=== PATIENT | female | born 1945 | race Caucasian/White ===

== ENCOUNTER 2018-08-29 08:52 | Emergency (ER) | payer MEDICARE, OTHER ==
[~2018-08-29] VITALS: Ht 160 cm; Wt 81.7 kg
[~2018-08-29 08:52] MED LIST: ASPI325 PO; ASPI81CH PO; DOCU100 PO; IBUP400 PO; KRILL OIL 3001 EACH PO; LEVOXYL; LOSA50 PO; LOSHYD; LOSHYD100 PO; METO50ER; NIAC500 PO; NICO2 PO; NICO21TP TOP; SERT50; UBID10 PO; VITAMIN B122500 MCG PO
[2018-08-29] MEDS ORDERED: Percocet 5-3251 EACH PO (11:13)
== END 2018-08-29 11:41 | disposition home or self-care (01) ==
LOC: ER 08:52
DX: S82.841A Displaced bimalleolar fracture of right lower leg, initial encounter for closed fracture (principal); S92.321A Displaced fracture of second metatarsal bone, right foot, initial encounter for closed fracture; S92.331A Displaced fracture of third metatarsal bone, right foot, initial encounter for closed fracture; S92.341A Displaced fracture of fourth metatarsal bone, right foot, initial encounter for closed fracture; W19.XXXA Unspecified fall, initial encounter; R93.6 Abnormal findings on diagnostic imaging of limbs; Z88.0 Allergy status to penicillin; Z88.2 Allergy status to sulfonamides; Z79.899 Other long term (current) drug therapy; Z79.82 Long term (current) use of aspirin; I10 Essential (primary) hypertension; F17.200 Nicotine dependence, unspecified, uncomplicated
CPT/HCPCS: 27810; 36415; 73600; 73700; 76377; 96374-59; 99152; 99284-25; J2405; J2704; J7030

== ENCOUNTER 2018-09-07 06:28 | Day surgery (SDC) | payer MEDICARE, OTHER ==
[~2018-09-07] VITALS: Ht 160 cm; Wt 82.8 kg
[~2018-09-07 06:28] MED LIST changes: +Percocet 5-3251 EACH PO
[2018-09-07] MEDS ORDERED: BACL10 PO (07:11)
[2018-09-07] MEDS ORDERED: TRAM50 PO (07:11)
[2018-09-07] MEDS ORDERED: AMLO10 PO (07:12)
--- NOTE | 2018-09-07 08:10 | NUR ---
09/07/18 0810 Sharon Robert A DIME SIZE CLOSED BLISTER NOTED TO RIGHT ANTERIOR ANKLE. EVELYN AND PA AWARE.
== END 2018-09-07 10:46 | disposition home or self-care (01) ==
LOC: ORSCSDS 06:28
PROVIDERS: Orthopaedic Surgery
PROC: 0QSJ04Z Reposition Right Fibula with Internal Fixation Device, Open Approach (ICD-10-PCS; principal; 2018-09-07 07:30)
PROC: 0QSG04Z Reposition Right Tibia with Internal Fixation Device, Open Approach (ICD-10-PCS; principal; 2018-09-07 07:30)
DX: S82.851A Displaced trimalleolar fracture of right lower leg, initial encounter for closed fracture (principal); I10 Essential (primary) hypertension; J44.9 Chronic obstructive pulmonary disease, unspecified; Z87.891 Personal history of nicotine dependence; Z79.899 Other long term (current) drug therapy
CPT/HCPCS: 36415; 80048; C1713; C1769; J1100; J1885; J2405; J2704; J2795; J3010; J7120

== ENCOUNTER 2019-05-05 20:10 | Inpatient (IN) | payer MEDICARE, OTHER ==
[~2019-05-05] VITALS: Ht 160 cm; Wt 79.4 kg
[~2019-05-05 20:10] MED LIST changes: +AMLO10 PO; +BACL10 PO; +TRAM50 PO
[2019-05-05 21:13] LABS: BASOPHILS ABSOLUTE AUTO 0.02 K/mm3 (0.00-0.23); BASOPHILS PERCENT AUTO 0 % (0-2); EOSINOPHILS ABSOLUTE AUTO 0.04 K/mm3 (0.00-0.68); EOSINOPHILS PERCENT AUTO 1 % (0-6); Hematocrit 39.3 % (33.0-51.0); Hemoglobin 14.4 g/dL (11.5-16.0); IMMATURE GRAN ABSOLUTE AUTO 0.04 K/mm3 (0.00-0.10); IMMATURE GRAN PERCENT AUTO 1 % (0-1); LYMPHOCYTES ABSOLUTE AUTO 1.22 K/mm3 (0.84-5.20); LYMPHOCYTES PERCENT AUTO 14 % (21-46); MONOCYTES ABSOLUTE AUTO 1.26 K/mm3 (0.16-1.47); MONOCYTES PERCENT AUTO 14 % (4-13); Mean Corpuscular HGB 31.6 pg (26.0-34.0); Mean Corpuscular HGB Conc 36.6 g/dL (31.5-36.5); Mean Corpuscular Volume 86 fL (80-100); Mean Platelet Volume 8.7 fL (9.1-12.4); NEUTROPHILS ABSOLUTE AUTO 6.16 K/mm3 (1.96-9.15); NEUTROPHILS PERCENT AUTO 70 % (41-73); Platelet Count 319 K/mm3 (150-400); RDW Coefficient Variation 12.5 % (11.7-14.2); RDW Standard Deviation 39.7 fL (35.1-46.3); Red Blood Cell Count 4.56 M/mm3 (3.80-5.20); White Blood Cell Count 8.74 K/mm3 (4.00-11.30)
[2019-05-05 21:41] LABS: Troponin I <0.015 ng/mL (0.000-0.040)
[2019-05-05 21:51] LABS: Alanine Aminotransfer (ALT/SGP 30 U/L (12-78); Albumin, Blood 4.1 g/dL (3.4-5.0); Albumin/Globulin Ratio 1.1 (0.8-1.8); Alk Phos 122 U/L (50-136); Anion Gap 10 mmol/L (6-16); Aspartate Aminotrans (AST/SGOT 30 U/L (12-37); Bilirubin, Total 0.5 mg/dL (0.1-1.0); Blood Urea Nitrogen 8 mg/dL (8-24); Bun/Creatinine Ratio 11.4 (12.0-20.0); CO2, Blood 26 mmol/L (21-32); Calcium, Blood 9.2 mg/dL (8.5-10.1); Chloride, Blood 80 mmol/L (98-108); Globulin, Blood 3.8 g/dL (2.2-4.0); Glomerular Filtration Rate >60 (60-); Glucose, Blood 117 mg/dL (70-99); Potassium, Blood 3.9 mmol/L (3.5-5.5); Sodium, Blood 116 mmol/L (136-145); Total Protein, Blood 7.9 g/dL (6.4-8.2)
[2019-05-05 22:33] LABS: Free Thyroxine 1.22 ng/dL (0.70-1.60); Magnesium, Blood 1.9 mg/dL (1.6-2.4); Uric Acid, Blood 3.5 mg/dL (2.6-6.0)
[2019-05-05 22:35] LABS: Phosphorus, Blood 1.8 mg/dL (2.5-4.9); Thyroid Stimulating Hormone 3.44 uIU/mL (0.360-4.800); Triiodothyronine, Free 2.99 pg/mL (2.18-3.98)
[2019-05-06 05:49] LABS: Anion Gap 8 mmol/L (6-16); Blood Urea Nitrogen 9 mg/dL (8-24); CO2, Blood 26 mmol/L (21-32); Calcium, Blood 8.4 mg/dL (8.5-10.1); Chloride, Blood 87 mmol/L (98-108); Creatinine, Blood 0.75 mg/dL (0.40-1.00); Glomerular Filtration Rate >60 (60-); Glucose, Blood 105 mg/dL (70-99); Potassium, Blood 3.8 mmol/L (3.5-5.5); Sodium, Blood 121 mmol/L (136-145); Troponin I <0.015 ng/mL (0.000-0.040)
--- NOTE | 2019-05-06 06:55 | NUR ---
Patient arrived from the ER awake, cooperative, able to move self from gurney to bed. Patient is dizzy when she stands, which has been normal for her for the past few days. When she arrived @ 0005, she wanted a sleep aid and nicotine patch, both were given/placed. no acute changes over the shift.
--- NOTE | 2019-05-06 10:40 | NUR ---
TELE BOX RETURNED TO PCU.
--- NOTE | 2019-05-06 16:07 | NUR ---
SHIFT SUMMARY NO ACUTE CHANGES THIS SHIFT. PT DENIES SOB. SATS STABLE ON ROOM. PT INDEP IN ROOM. IVF INFUSING PER ORDERS. LABS ORDERED FOR THE A.M. CALL LIGHT WITHIN REACH.
--- NOTE | 2019-05-07 05:09 | NUR ---
PATIENT INDEPENDENT IN THE ROOM. STATED THAT SHE WAS ABLE TO SLEEP LAST NIGHT. PATIENT HAD LABS DRAWN THIS AM, PT HOPES THAT SHE WILL BE GOING HOME TODAY. dURING AM VIATLS IT WAS SHE WAS FOUND TO HAVE BIOX OF 88%. PT COACHED TO DEEP BREATH AND COUGH SEVERAL TIMES. BIOX QUICKLY INCREASED TO 91%. HER LUNGS ARE CLEAR. PT IS A SMOKER WITH A NICOTINE PATCH ON. NO OTHER ACUTE CHANGES.
[2019-05-07 05:44] LABS: Anion Gap 6 mmol/L (6-16); Blood Urea Nitrogen 12 mg/dL (8-24); Bun/Creatinine Ratio 13.6 (12.0-20.0); CO2, Blood 28 mmol/L (21-32); Calcium, Blood 8.9 mg/dL (8.5-10.1); Chloride, Blood 98 mmol/L (98-108); Creatinine, Blood 0.88 mg/dL (0.40-1.00); Glomerular Filtration Rate >60 (60-); Glucose, Blood 101 mg/dL (70-99); Potassium, Blood 4.1 mmol/L (3.5-5.5)
[2019-05-07 05:49] LABS: Sodium, Blood 132 mmol/L (136-145)
--- NOTE | 2019-05-07 12:08 | NUR ---
Discharge instructions reviewed with patient. Patient verbalizes understanding. Copy given to patient to take home. Discharged via wheelchair to private car for ride home.
== END 2019-05-07 12:00 | disposition home or self-care (01) | DRG 641 ==
LOC: ER 20:10 → SURS 23:02 → ER 23:35 → SURS 23:46
PROVIDERS: Emergency Medicine; Hospitalist; Physician Assistant; ADMIT Internal Medicine
DX: E87.1 Hypo-osmolality and hyponatremia (principal); R91.1 Solitary pulmonary nodule; J44.9 Chronic obstructive pulmonary disease, unspecified; I10 Essential (primary) hypertension; K21.9 Gastro-esophageal reflux disease without esophagitis; M32.9 Systemic lupus erythematosus, unspecified; M54.9 Dorsalgia, unspecified
CPT/HCPCS: 36415; 71045; 71260; 80048; 80053; 83735; 83880; 83930; 84100; 84439; 84443; 84481; 84484; 84550; 85025; 85379; 93005; 93010; 96360; 99285-25; J1650; J2405; J7030; Q9967

== ENCOUNTER 2020-02-02 19:16 | Inpatient (IN) | payer MEDICARE, OTHER ==
[~2020-02-02] VITALS: Ht 157.5 cm; Wt 77.1 kg
[2020-02-02 20:04] LABS: BASOPHILS ABSOLUTE AUTO 0.02 K/mm3 (0.00-0.23); BASOPHILS PERCENT AUTO 0 % (0-2); EOSINOPHILS ABSOLUTE AUTO 0.05 K/mm3 (0.00-0.68); EOSINOPHILS PERCENT AUTO 0 % (0-6); Hematocrit 39.8 % (33.0-51.0); IMMATURE GRAN ABSOLUTE AUTO 0.11 K/mm3 (0.00-0.10); IMMATURE GRAN PERCENT AUTO 1 % (0-1); LYMPHOCYTES ABSOLUTE AUTO 0.92 K/mm3 (0.84-5.20); LYMPHOCYTES PERCENT AUTO 7 % (21-46); MONOCYTES ABSOLUTE AUTO 1.29 K/mm3 (0.16-1.47); MONOCYTES PERCENT AUTO 10 % (4-13); Mean Corpuscular HGB 29.8 pg (26.0-34.0); Mean Corpuscular HGB Conc 32.7 g/dL (31.5-36.5); Mean Corpuscular Volume 91 fL (80-100); Mean Platelet Volume 9.4 fL (9.1-12.4); NEUTROPHILS ABSOLUTE AUTO 10.74 K/mm3 (1.96-9.15); NEUTROPHILS PERCENT AUTO 82 % (41-73); NRBC ABSOLUTE 0.09 K/mm3 (0.00-0.02); NRBC Auto 0.7 /100 WBC (0.0-0.2); Platelet Count 367 K/mm3 (150-400); RDW Coefficient Variation 14.3 % (11.7-14.2); RDW Standard Deviation 46.7 fL (35.1-46.3); Red Blood Cell Count 4.36 M/mm3 (3.80-5.20); White Blood Cell Count 13.13 K/mm3 (4.00-11.30)
[2020-02-02] MEDS ORDERED: LOSARTAN POTAS100 M1 PO (20:05)
[2020-02-02] MEDS ORDERED: Hydroxyzine HCl50 MG PO (20:06)
[2020-02-02 20:18] LABS: Troponin I <0.015 ng/mL (0.000-0.040)
[2020-02-02 20:19] LABS: Alanine Aminotransfer (ALT/SGP 34 U/L (12-78); Albumin, Blood 3.8 g/dL (3.4-5.0); Alk Phos 152 U/L (50-136); Anion Gap 7 mmol/L (6-16); Aspartate Aminotrans (AST/SGOT 39 U/L (12-37); Bilirubin, Total 0.4 mg/dL (0.1-1.0); Blood Urea Nitrogen 25 mg/dL (8-24); Bun/Creatinine Ratio 14.7 (12.0-20.0); CO2, Blood 31 mmol/L (21-32); Calcium, Blood 9.1 mg/dL (8.5-10.1); Chloride, Blood 83 mmol/L (98-108); Globulin, Blood 3.7 g/dL (2.2-4.0); Glomerular Filtration Rate 31 (60-); Glucose, Blood 134 mg/dL (70-99); Potassium, Blood 4.6 mmol/L (3.5-5.5); Sodium, Blood 121 mmol/L (136-145); Total Protein, Blood 7.5 g/dL (6.4-8.2)
[2020-02-02 20:59] LABS: Influenza A, PCR Negative (NEGATIVE); Influenza B, PCR Negative (NEGATIVE); Resp Syncytial Virus, PCR Negative (NEGATIVE); SARS-Cov-2 (COVID-19) PCR, MMC Negative (NEGATIVE)
[2020-02-02 21:30] LABS: Base Excess Venous 12.7 mmol/L; Bicarbonate Venous 33.7 mmol/L (24.0-30.0); PCO2 Venous 60.6 mmHg (38-42); PO2 Venous 43.1 mmHg (38-42)
--- NOTE | 2020-02-03 01:41 | NUR ---
02/02/20 2340 PT ADMITTED TO ROOM 339 PER CART FROM ER; REPORT RECEIVED FROM MAGALIE TARIQ IN ER; ALERT AND ORIENTED X 4; DENIES PAIN; WEARING O2 AT 4L/M PER NASAL CANNULA.
--- NOTE | 2020-02-03 03:30 | NUR ---
SHIFT SUMMARY: 74 Y/O FEMALE RESTED COMFORTABLY ENTIRE SHIFT WHILE WEARING O2 AT 4L/M PER NASAL CANNULA; DENIES PAIN OR NAUSEA; ALERT AND ORIENTED X 4; LUNG SOUNDS ARE DIMINISHED THROUGHOUT WITH NO COUGH; BED ALARM APPLIED FOR SAFETY, BED LOW POSITION WITH CALL LIGHT AT SIDE.
[2020-02-03 05:31] LABS: BASOPHILS ABSOLUTE AUTO 0.02 K/mm3 (0.00-0.23); BASOPHILS PERCENT AUTO 0 % (0-2); EOSINOPHILS PERCENT AUTO 0 % (0-6); Hematocrit 37.3 % (33.0-51.0); Hemoglobin 12.3 g/dL (11.5-16.0); IMMATURE GRAN ABSOLUTE AUTO 0.08 K/mm3 (0.00-0.10); IMMATURE GRAN PERCENT AUTO 1 % (0-1); LYMPHOCYTES ABSOLUTE AUTO 0.21 K/mm3 (0.84-5.20); LYMPHOCYTES PERCENT AUTO 2 % (21-46); MONOCYTES ABSOLUTE AUTO 0.12 K/mm3 (0.16-1.47); MONOCYTES PERCENT AUTO 1 % (4-13); Mean Corpuscular HGB 30.6 pg (26.0-34.0); Mean Corpuscular Volume 93 fL (80-100); Mean Platelet Volume 9.4 fL (9.1-12.4); NEUTROPHILS ABSOLUTE AUTO 8.42 K/mm3 (1.96-9.15); NEUTROPHILS PERCENT AUTO 95 % (41-73); NRBC ABSOLUTE 0.03 K/mm3 (0.00-0.02); NRBC Auto 0.3 /100 WBC (0.0-0.2); Platelet Count 275 K/mm3 (150-400); RDW Coefficient Variation 14.5 % (11.7-14.2); RDW Standard Deviation 47.6 fL (35.1-46.3); Red Blood Cell Count 4.02 M/mm3 (3.80-5.20); White Blood Cell Count 8.85 K/mm3 (4.00-11.30)
[2020-02-03 05:54] LABS: Bun/Creatinine Ratio 18.3 (12.0-20.0); Calcium, Blood 8.3 mg/dL (8.5-10.1); Creatinine, Blood 1.04 mg/dL (0.40-1.00)
--- NOTE | 2020-02-03 18:44 | NUR ---
PT RESTING IN BED AFTER DINNER AND MEDICATED PER EMAR. PT ON 4L AND CONT. PULSE OX, RUNNING IN THE LOWER TO MID 90'S. PT AMBULATES TO BATHROOM WITH STAND BY ASSIST. PT EXPERIENCED SOME ANXIETY MID SHIFT AND EMAR MEDICATION PROVIDED. NO COMPLIANTS OF PAIN, SOB OR N/V AT THIS TIME. STAFF WILL CONT TO MONITOR.
--- NOTE | 2020-02-04 04:37 | NUR ---
PIT SHOVELER SUMMARY PT A&OX4, ABLE TO MAKE NEEDS KNOWN. PLEASANT AND COOPERATIVE TO CARE. PT MEDICATED FOR NAUSEA PER EMAR. PT REPORTED THAT ZOFRAN WAS EFFECTIVE. NO C/O CP. PT CONT ON O2 4LPM VIA NC. DYSPNEA NOTED WHEN PT AMBULATED TO BATHROOM WITH SBA. PT ALSO MEDICATED FOR ANXIETY. NO C/O PAIN. PT CALM AND RESTED IN BED AT THIS TIME. BED AT LOWEST POSITION, CALL LIGHT WITHIN REACH.
[2020-02-04 05:56] LABS: Albumin, Blood 3.2 g/dL (3.4-5.0); Anion Gap 1 mmol/L (6-16); Blood Urea Nitrogen 15 mg/dL (8-24); Bun/Creatinine Ratio 18.8 (12.0-20.0); CO2, Blood 35 mmol/L (21-32); Calcium, Blood 8.9 mg/dL (8.5-10.1); Chloride, Blood 98 mmol/L (98-108); Glomerular Filtration Rate >60 (60-); Glucose, Blood 194 mg/dL (70-99); Phosphorus, Blood 2.6 mg/dL (2.5-4.9); Potassium, Blood 4.6 mmol/L (3.5-5.5); Sodium, Blood 134 mmol/L (136-145)
--- NOTE | 2020-02-04 14:44 | NUR ---
PATIENT HAS BEEN PLEASANT AND COOPERATIVE WITH STAFF. DYSPNIC EVEN WHILE AT REST. PATIENT HAS BEEN TITRATED DOWN TO 2L O2 NC; DOES NOT USE O2 AT HOME. PATIENT CALLS FOR STAFF ASSIST APPROPRIATELY AND NEEDED. CONTINUES ON PO ABX WITHOUT S/SX ADVERSE REACTIONS NOTED OR REPORTED. VITALS HAVE BEEN STABLE. WILL CONTINUE TO MONITOR AND PROVIDE CARE.
--- NOTE | 2020-02-04 17:34 | NUR ---
I provided prayer and spiritual dianetic counselor to Mariza. She admits to feeling fearful of declining health. Her 8 years ago, and her health has gotten worse since then. She responded well to spiritual direction and prayer. I made a t/c to her hydraulic bull riveter operator at her request. I will remain available.
--- NOTE | 2020-02-05 05:24 | NUR ---
SHIFT SUMMARY: VSS. AFEB. 02 92% ON 2L VIA NC. UP ABM W/ 02 ON IN ROOM. STATES THAT SHE IS TUNDE ACTIVITY BETTER W/ LESS EXERTIONAL DYSPNEA. RESPS EVEN, NON-LABORED. FINE CRACKLES AUSCULTATED IN B LUNGS. PT DENIES COUGH. SOLU-MEDROL ADMINISTERED PER ORDERS. PT WAS ABLE TO SLEEP LAST NIGHT W/ HS AMBIEN. NO ACUTE CHANGES OVERNIGHT. WILL CONT TO MONITOR.
[2020-02-05 06:30] LABS: Hematocrit 41.7 % (33.0-51.0); Hemoglobin 13.1 g/dL (11.5-16.0); Mean Corpuscular HGB 29.8 pg (26.0-34.0); Mean Corpuscular HGB Conc 31.4 g/dL (31.5-36.5); Mean Corpuscular Volume 95 fL (80-100); Mean Platelet Volume 9.3 fL (9.1-12.4); Platelet Count 283 K/mm3 (150-400); RDW Standard Deviation 50.6 fL (35.1-46.3); Red Blood Cell Count 4.39 M/mm3 (3.80-5.20)
[2020-02-05 06:47] LABS: Albumin, Blood 3.2 g/dL (3.4-5.0); Anion Gap 2 mmol/L (6-16); Blood Urea Nitrogen 23 mg/dL (8-24); Bun/Creatinine Ratio 25.6 (12.0-20.0); CO2, Blood 33 mmol/L (21-32); Calcium, Blood 8.9 mg/dL (8.5-10.1); Chloride, Blood 98 mmol/L (98-108); Glomerular Filtration Rate >60 (60-); Glucose, Blood 168 mg/dL (70-99); Phosphorus, Blood 3.5 mg/dL (2.5-4.9); Potassium, Blood 4.9 mmol/L (3.5-5.5); Sodium, Blood 133 mmol/L (136-145)
--- NOTE | 2020-02-05 16:39 | NUR ---
PATIENT PLEASANT AND COOPERATIVE WITH STAFF. VITALS HAVE BEEN STABLE. CONTINUES TO REQUIRE BETWEEN 1-2L O2 NC ESPECIALLY DURING EXERTION. PATIENT HAD A HOME O2 EVAL DONE TODAY AND IT WAS OFFICIALLY DETERMINED THAT PATIENT WILL REQUIRE 2L O2 NC WITH EXERTION. PATIENT REQUESTS VISTERIL WHEN HER HEART RATE BEGINS TO RACE AND IT SEEMS TO HELP. DENIES PAIN AND DISCOMFORT. PLAN IS TO DISCHARGE HOME TOMORROW. PATIENT IS IN ROOM RESTING AT THIS TIME. WILL CONTINUE TO MONITOR.
--- NOTE | 2020-02-05 19:40 | NUR ---
Awake, watching TV. Denied pain and loss of feeling. Call light in reach
[2020-02-06 05:52] LABS: Anion Gap 2 mmol/L (6-16); Blood Urea Nitrogen 30 mg/dL (8-24); Bun/Creatinine Ratio 32.6 (12.0-20.0); CO2, Blood 35 mmol/L (21-32); Calcium, Blood 8.9 mg/dL (8.5-10.1); Chloride, Blood 97 mmol/L (98-108); Creatinine, Blood 0.92 mg/dL (0.40-1.00); Glomerular Filtration Rate >60 (60-); Glucose, Blood 119 mg/dL (70-99); Potassium, Blood 4.9 mmol/L (3.5-5.5); Sodium, Blood 134 mmol/L (136-145)
--- NOTE | 2020-02-06 06:02 | NUR ---
SHIFT SUMMARY HAS BEEN RSETING QUIETLY WITH FEW INTERRUPTIONS THIS SHIFT. CALL LIGHT IN REACH. NO NOTED S/S ACUTE DISTRESS.
[2020-02-06] MEDS ORDERED: ACET325 PO (12:21)
[2020-02-06] MEDS ORDERED: AZIT250 PO (12:23)
[2020-02-06] MEDS ORDERED: FLUTICASONE-SA1 EAC1 INH (12:23)
[2020-02-06] MEDS ORDERED: PRED20 PO (12:26)
[2020-02-06] MEDS ORDERED: PROAIR RESPICL90 MCG INH (12:27)
[2020-02-06] MEDS ORDERED: MIRALAX17 GM PO (12:28)
[2020-02-06] MEDS ORDERED: OMEP20ER PO (12:28)
--- NOTE | 2020-02-06 13:26 | NUR ---
DISCHARGE PT DISCHARGED TO HOME VIA WC; IV DCD; PT PACKET PRINTED WITH INSTRUCTIONS AND EDUCATED ABOUT THE NEW MEDICATIONS. PT DECLINE H&h AND ANIMAL HUSBANDRY PROFESSOR AWARE, PT GIVEN O2 AT HOME WITH COC[employer]. O2 HOME EVAL DONE YESTERDAY. PT STATED SHE DOES NOT NEED OXYGEN AND RA AT BASELINE. PT MEDICATIONS SENT TO PHARMACY.
== END 2020-02-06 13:19 | disposition home health service (06) | DRG 189 ==
LOC: ER 19:16 → MEDS 23:21
PROVIDERS: Family Medicine; Internal Medicine; Student in an Organized Health Care Education/Training Program; ADMIT Hospitalist
DX: J96.01 Acute respiratory failure with hypoxia (principal); E87.1 Hypo-osmolality and hyponatremia; I50.32 Chronic diastolic (congestive) heart failure; J44.1 Chronic obstructive pulmonary disease with (acute) exacerbation; N17.9 Acute kidney failure, unspecified; Z20.828 Contact with and (suspected) exposure to other viral communicable diseases; I11.0 Hypertensive heart disease with heart failure; F17.210 Nicotine dependence, cigarettes, uncomplicated
CPT/HCPCS: 0241U; 36415; 71045; 80048; 80053; 80069; 82803; 83880; 84145; 84484; 85025; 85027; 93005; 93010; 94640; 94664; 94667; 94760; 96360; 96361; 97116; 97161; 97165; 97530; 97535; 98960; 99285-25; 99407; J0456; J0696; J2930; J7030; J7050; J7512; Q0177

== ENCOUNTER 2021-01-26 14:02 | Inpatient (IN) | payer MEDICARE, OTHER ==
[~2021-01-26] VITALS: Ht 157.5 cm; Wt 82.9 kg
[~2021-01-26 14:02] MED LIST changes: +ACET325 PO; +AZIT250 PO; +FLUTICASONE-SA1 EAC1 INH; +Hydroxyzine HCl50 MG PO; +LOSARTAN POTAS100 M1 PO; +MIRALAX17 GM PO; +OMEP20ER PO; +PRED20 PO; +PROAIR RESPICL90 MCG INH
[2021-01-26 15:35] LABS: BASOPHILS ABSOLUTE AUTO 0.04 K/mm3 (0.00-0.23); BASOPHILS PERCENT AUTO 1 % (0-2); EOSINOPHILS ABSOLUTE AUTO 0.01 K/mm3 (0.00-0.68); EOSINOPHILS PERCENT AUTO 0 % (0-6); Hematocrit 36.3 % (33.0-51.0); Hemoglobin 12.2 g/dL (11.5-16.0); IMMATURE GRAN ABSOLUTE AUTO 0.15 K/mm3 (0.00-0.10); IMMATURE GRAN PERCENT AUTO 2 % (0-1); LYMPHOCYTES ABSOLUTE AUTO 0.82 K/mm3 (0.84-5.20); LYMPHOCYTES PERCENT AUTO 12 % (21-46); MONOCYTES ABSOLUTE AUTO 0.96 K/mm3 (0.16-1.47); MONOCYTES PERCENT AUTO 14 % (4-13); Mean Corpuscular HGB 31.9 pg (26.0-34.0); Mean Corpuscular HGB Conc 33.6 g/dL (31.5-36.5); Mean Corpuscular Volume 95 fL (80-100); Mean Platelet Volume 9.5 fL (9.1-12.4); NEUTROPHILS ABSOLUTE AUTO 4.74 K/mm3 (1.96-9.15); NEUTROPHILS PERCENT AUTO 71 % (41-73); NRBC ABSOLUTE 0.02 K/mm3 (0.00-0.02); NRBC Auto 0.3 /100 WBC (0.0-0.2); Platelet Count 201 K/mm3 (150-400); RDW Coefficient Variation 17.9 % (11.7-14.2); RDW Standard Deviation 61.1 fL (35.1-46.3); Red Blood Cell Count 3.82 M/mm3 (3.80-5.20); White Blood Cell Count 6.72 K/mm3 (4.00-11.30)
[2021-01-26 16:19] LABS: Influenza A, PCR NEGATIVE (NEGATIVE); Influenza B, PCR NEGATIVE (NEGATIVE); Resp Syncytial Virus, PCR NEGATIVE (NEGATIVE); SARS-Cov-2 (COVID-19) PCR, MMC NEGATIVE (NEGATIVE)
[2021-01-26 17:05] LABS: Ethanol (Alcohol), Blood, Med 281 mg/dL
[2021-01-26 17:17] LABS: Alanine Aminotransfer (ALT/SGP 97 U/L (12-78); Albumin/Globulin Ratio 0.9 (0.8-1.8); Alk Phos 217 U/L (50-136); Anion Gap 17 mmol/L (6-16); Aspartate Aminotrans (AST/SGOT 219 U/L (12-37); Bilirubin, Total 0.7 mg/dL (0.1-1.0); Blood Urea Nitrogen 19 mg/dL (8-24); Bun/Creatinine Ratio 28.7 (12.0-20.0); CO2, Blood 27 mmol/L (21-32); Calcium, Blood 8.4 mg/dL (8.5-10.1); Chloride, Blood 93 mmol/L (98-108); Creatinine, Blood 0.66 mg/dL (0.40-1.00); Globulin, Blood 3.3 g/dL (2.2-4.0); Glomerular Filtration Rate >60 (60-); Glucose, Blood 73 mg/dL (70-99); Potassium, Blood 5.7 mmol/L (3.5-5.5); Sodium, Blood 137 mmol/L (136-145); Total Protein, Blood 6.3 g/dL (6.4-8.2)
[2021-01-26 17:44] LABS: U Amphetamine Screen DETECTED; U Barbituate Screen Not Detected; U Benzodiazapine Screen Not Detected; U Buprenorphine Screen Not Detected; U Cannabinoids Screen Not Detected; U Cocaine Screen Not Detected; U Methadone Screen Not Detected; U Methamphetamine Screen Not Detected; U Opiates Screen Not Detected; U Oxycodone Screen Not Detected; U Phencyclidine Screen Not Detected; U Propoxyphene Screen Not Detected
[2021-01-26 20:37] LABS: PCO2 Arterial 48.3 mmHg (35-45); pH Blood Arterial 7.36 (7.35-7.45)
[2021-01-26 21:43] LABS: CPK Creatine Kinase 289 U/L (26-193)
[2021-01-26 21:50] LABS: PCO2 Arterial 47.9 mmHg (35-45); PO2 Arterial 67.3 mmHg (80-100); pH Blood Arterial 7.35 (7.35-7.45)
[2021-01-26 22:19] LABS: Magnesium, Blood 1.8 mg/dL (1.6-2.4)
[2021-01-26 22:49] LABS: Creatine Kinase MB Index 1.7 (0.0-4.0)
[2021-01-27 05:16] LABS: BASOPHILS ABSOLUTE AUTO 0.04 K/mm3 (0.00-0.23); BASOPHILS PERCENT AUTO 1 % (0-2); EOSINOPHILS ABSOLUTE AUTO 0.02 K/mm3 (0.00-0.68); EOSINOPHILS PERCENT AUTO 0 % (0-6); Hematocrit 32.8 % (33.0-51.0); Hemoglobin 11.2 g/dL (11.5-16.0); IMMATURE GRAN ABSOLUTE AUTO 0.07 K/mm3 (0.00-0.10); IMMATURE GRAN PERCENT AUTO 1 % (0-1); LYMPHOCYTES ABSOLUTE AUTO 0.74 K/mm3 (0.84-5.20); LYMPHOCYTES PERCENT AUTO 10 % (21-46); MONOCYTES ABSOLUTE AUTO 0.81 K/mm3 (0.16-1.47); MONOCYTES PERCENT AUTO 11 % (4-13); Mean Corpuscular HGB Conc 34.1 g/dL (31.5-36.5); Mean Corpuscular Volume 94 fL (80-100); Mean Platelet Volume 9.9 fL (9.1-12.4); NEUTROPHILS ABSOLUTE AUTO 5.64 K/mm3 (1.96-9.15); NEUTROPHILS PERCENT AUTO 77 % (41-73); Platelet Count 178 K/mm3 (150-400); RDW Coefficient Variation 17.6 % (11.7-14.2); RDW Standard Deviation 59.7 fL (35.1-46.3); White Blood Cell Count 7.32 K/mm3 (4.00-11.30)
[2021-01-27 06:27] LABS: Alanine Aminotransfer (ALT/SGP 83 U/L (12-78); Albumin, Blood 2.4 g/dL (3.4-5.0); Albumin/Globulin Ratio 0.9 (0.8-1.8); Alk Phos 206 U/L (50-136); Anion Gap 11 mmol/L (6-16); Aspartate Aminotrans (AST/SGOT 157 U/L (12-37); Bilirubin, Total 0.6 mg/dL (0.1-1.0); Blood Urea Nitrogen 17 mg/dL (8-24); CO2, Blood 32 mmol/L (21-32); Calcium, Blood 8.4 mg/dL (8.5-10.1); Chloride, Blood 93 mmol/L (98-108); Creatinine, Blood 0.68 mg/dL (0.40-1.00); Globulin, Blood 2.7 g/dL (2.2-4.0); Glomerular Filtration Rate >60 (60-); Glucose, Blood 157 mg/dL (70-99); Sodium, Blood 136 mmol/L (136-145); Total Protein, Blood 5.1 g/dL (6.4-8.2)
[2021-01-27 13:44] LABS: Hematocrit 32.6 % (33.0-51.0); Hemoglobin 10.8 g/dL (11.5-16.0)
[2021-01-27] MEDS ORDERED: SERT100 (15:46)
--- NOTE | 2021-01-27 17:32 | NUR ---
Pt was admitted at 1400. Prior to transfer pt had been disconnected from cardizem gtt. When pt arrived, HR was 80-100s, did not restart cardizem gtt since MD order was to d/c if HR sustained below 100. PO cadizem given per orders. Pt complained of pain in buttocks. Assessed bottom and the wounds looked like they could be caused from moisture or pressure, wound care consult placed. There are several open sores, cleansed with water and soap and applied barrier cream. MD notified of pain and prn meds added. CIWA- 12, prn ativan given. VSS on 2L. Pt worked with OT and HR did jump up with activity. Pt did not get out of bed, deconditioned. Did transfer from [facility] with 2 person assist. Palliative consult order in, spoke with palliative team and they will see her tomorrow. In ED pt was given protonix gtt and oxtreotide gtt, but they had both finished prior to arrival on floor. No BM since on floor. Pt reported she does use oxygen prn at home.
--- NOTE | 2021-01-27 17:42 | NUR ---
Pt reported she has been drinking about 1/5 of vodka each day the last couple weeks to help her sleep and for the pain in her buttocks. MICHA completed and scored 12 on the first assessment. JOSR Mackay.
[2021-01-28 04:26] LABS: BASOPHILS ABSOLUTE AUTO 0.03 K/mm3 (0.00-0.23); BASOPHILS PERCENT AUTO 1 % (0-2); EOSINOPHILS ABSOLUTE AUTO 0.04 K/mm3 (0.00-0.68); EOSINOPHILS PERCENT AUTO 1 % (0-6); Hematocrit 33.2 % (33.0-51.0); IMMATURE GRAN ABSOLUTE AUTO 0.07 K/mm3 (0.00-0.10); IMMATURE GRAN PERCENT AUTO 2 % (0-1); LYMPHOCYTES ABSOLUTE AUTO 0.67 K/mm3 (0.84-5.20); LYMPHOCYTES PERCENT AUTO 15 % (21-46); MONOCYTES ABSOLUTE AUTO 0.59 K/mm3 (0.16-1.47); MONOCYTES PERCENT AUTO 13 % (4-13); Mean Corpuscular HGB 31.6 pg (26.0-34.0); Mean Corpuscular HGB Conc 33.1 g/dL (31.5-36.5); Mean Corpuscular Volume 95 fL (80-100); Mean Platelet Volume 9.6 fL (9.1-12.4); NEUTROPHILS ABSOLUTE AUTO 3.23 K/mm3 (1.96-9.15); NEUTROPHILS PERCENT AUTO 70 % (41-73); NRBC ABSOLUTE 0.02 K/mm3 (0.00-0.02); NRBC Auto 0.4 /100 WBC (0.0-0.2); Platelet Count 136 K/mm3 (150-400); RDW Coefficient Variation 17.4 % (11.7-14.2); RDW Standard Deviation 59.9 fL (35.1-46.3); Red Blood Cell Count 3.48 M/mm3 (3.80-5.20); White Blood Cell Count 4.63 K/mm3 (4.00-11.30)
[2021-01-28 04:52] LABS: Alanine Aminotransfer (ALT/SGP 66 U/L (12-78); Albumin, Blood 2.4 g/dL (3.4-5.0); Albumin/Globulin Ratio 0.8 (0.8-1.8); Alk Phos 181 U/L (50-136); Anion Gap 3 mmol/L (6-16); Aspartate Aminotrans (AST/SGOT 59 U/L (12-37); Bilirubin, Total 0.4 mg/dL (0.1-1.0); Blood Urea Nitrogen 13 mg/dL (8-24); Bun/Creatinine Ratio 18.9 (12.0-20.0); CO2, Blood 39 mmol/L (21-32); Calcium, Blood 8.8 mg/dL (8.5-10.1); Chloride, Blood 93 mmol/L (98-108); Creatinine, Blood 0.69 mg/dL (0.40-1.00); Globulin, Blood 3.1 g/dL (2.2-4.0); Glomerular Filtration Rate >60 (60-); Glucose, Blood 178 mg/dL (70-99); Magnesium, Blood 1.9 mg/dL (1.6-2.4); Phosphorus, Blood 2.1 mg/dL (2.5-4.9); Sodium, Blood 135 mmol/L (136-145); Thyroid Stimulating Hormone 0.938 uIU/mL (0.360-4.800); Total Protein, Blood 5.5 g/dL (6.4-8.2)
--- NOTE | 2021-01-28 05:59 | NUR ---
SHIFT SUMMARY PATIENT IS A&OX4, WITH A FLAT AFFECT AND GENERALIZED WEAKNESS. CIWA Q4H AND PRN 7-12 WITH PRN ATIVAN GIVEN X3 WITH GOOD RELIEF. MOSTLY ANXIETY RELATED SYMPTOMS AND COMPLAINED OF "FLASHES OF LIGHT" . VSS. ON 2L NC SATING MID 90'S. REMAINS AFIB IN THE 80'S TO LOW 100'S. BEGAN CREEPING BACK UP INTO THE 120'S EARLY THIS AM SO GAVE MORNING METOP DOSE EARLY IN HOPES TO NOT HAVE TO RESTART CARDIZEM DRIP. CURRENTLY HR 106. SANDOSTATIN AND PROTONIX DRIPS RUNNING PER ORDER. INCONTINENT OF BLADDER AND BOWEL WITH ONE LOOSE BM AT THE START OF SHIFT. ATTENDS IN PLACE AND CHECKING FREQUENTLY TO HELP HEAL THE MOISTURE BREAKDOWN IN CRISTINA AREA. Q2H TURNS AND BARRIER CREAM TO HELP WITH THIS WELL. TOELRATING CARDIAC DIET BUT NEEDS FULL TRAY SET UP AND SOME ASSISTANCE EATING. LARGE ABD HERNIA NOTED. NO ACUTE CONCERNS. WILL CONTINUE PLAN OF CARE UNTIL REPORT GIVEN TO PRITI MEJIAS.,
[2021-01-28 13:24] LABS: Source, Urine Catheter
[2021-01-28 13:32] LABS: Appearance, Urine Clear (Clear); Bilirubin, Urine Neg (Neg); Blood, Urine Neg (Neg); Glucose Qualitative, Urine Neg (Neg); Ketones, Urine Neg (Neg); Leukocyte Esterase, Urine Neg (Neg); Nitrite, Urine Neg (Neg); Protein, Urine Neg (Neg); Urobilinogen, Urine NORM (Normal)
--- NOTE | 2021-01-28 14:13 | NUR ---
PATIENT ALERT AND ORIENTED X3-4. OVERALL VERY WEAK AND WITHDRAWN. FLAT AFFECT. COOPERATIVE WITH CARE. ABLE TO MOVE ALL EXTREMITIES. DENIES NUMBNESS/TINGLING. CIWA RANGING FROM 4-8 THIS AM. ON 2-3L NASAL CANNULA SATING MID 90'S. LUNGS SOUNDING CLEAR AND DIM IN BASES. OCCASIONAL COUGH. TELE SHOWING, AFIB WITH HR TRENDING UP THIS AM. AVERAGING 120'S. DR. MANLEY CALLED AND PO CARDIZEM INCREASED. DENIES CHEST PAIN/PRESSURE. BP STABLE. MINIMAL EDEMA IN LOWER EXTREMITIES. STATES SHE HAS ABDOMINAL PAIN AT TIMES. HISTORY OF ABDOMINAL HERNIA. NO BOWEL MOVEMENT THIS AM. BISWAS CATH PLACED THIS AFTERNOON. DRAINING CLEAR YELLOW URINE. ATTENDS IN PLACE WELL. SKIN BREAKDOWN AND EXCORIATION TO COCCYX/SACRUM AND CRISTINA AREA. CLEANED AND MEPILEX IN PLACE. CIWA Q4 AND NEEDED. MEDICATED ONCE PER EMAR FOR CIWA OF 8. PATIENT STATES SHE IS SEEING AND HEARING PEOPLE THAT ARE NOT HERE. 2 PERSON ASSIST TO CHAIR. PHYSICAL THERAPY IN TO WORK WITH PATIENT. CALL LIGHT IN REACH. EATING WELL. WILL CONTINUE TO MONITOR.
[2021-01-28 17:02] LABS: Color, Urine Yellow (P-Yellow)
--- NOTE | 2021-01-28 17:41 | NUR ---
SHIFT SUMMARY: PATIENT REMAINS FLAT AND WITHDRAWN FROM CONVERSATION. WORKED WITH PT AND OT TODAY. UP TO CHAIR TWICE. DAUGHTER IN TO VISIT. EATING DINNER AT THIS TIME. OCTREOTIDE AND PROTONIX DRIP CONTINUE. PATIENT REMAINS ON 2L NASAL CANNULA SATING MID 90'S. TELE SHOWING AFIB WITH HR 100-110'S. IV METOPROLOL GIVEN X1 PER EMAR. BP REMAINS STABLE. BISWAS CATH DRAINING CLEAR YELLOW URINE. NO SIGNS OF GI BLEED THIS SHIFT. NO BM. ATTENDS IN PLACE. CALL LIGHT IN REACH. WILL CONTINUE TO MONITOR.
--- NOTE | 2021-01-28 21:40 | NUR ---
ASSUMED CARE OF PATIENT AT APPROXIMATELY 1905 FROM ELIGIO Hayes RN. PATIENT ALERT AND ORIENTED TO SELF AND . FLAT AFFECT. STATES DATE 01/27/2022 AND EVENT SHE "COULDN'T MAKE IT AT HOME". PATIENT DROWSY AT TIMES. CIWA 7. PATIENT DENIES PAIN, NUMBNESS, TINGLING, DIZZINESS AND NAUSEA. BEDREST W/ Q2H TURNS; PATIENT 2 ASSIST OUT OF BED PER REPORT. AFIB 100'S ON TELE; OXYGEN SATURATION ABOVE 90% ON 2LPM VIA NC. URINARY CATH IN PLACE AND ATTENDS IN PLACE FOR INCONTINENCE; OCTREOTIDE AND PROTONIX GTT.
[2021-01-29 04:48] LABS: BASOPHILS ABSOLUTE AUTO 0.04 K/mm3 (0.00-0.23); BASOPHILS PERCENT AUTO 1 % (0-2); EOSINOPHILS ABSOLUTE AUTO 0.06 K/mm3 (0.00-0.68); EOSINOPHILS PERCENT AUTO 1 % (0-6); Hematocrit 34.6 % (33.0-51.0); Hemoglobin 11.3 g/dL (11.5-16.0); IMMATURE GRAN ABSOLUTE AUTO 0.05 K/mm3 (0.00-0.10); IMMATURE GRAN PERCENT AUTO 1 % (0-1); LYMPHOCYTES ABSOLUTE AUTO 0.75 K/mm3 (0.84-5.20); LYMPHOCYTES PERCENT AUTO 13 % (21-46); MONOCYTES ABSOLUTE AUTO 0.65 K/mm3 (0.16-1.47); MONOCYTES PERCENT AUTO 11 % (4-13); Mean Corpuscular HGB 31.4 pg (26.0-34.0); Mean Corpuscular HGB Conc 32.7 g/dL (31.5-36.5); Mean Corpuscular Volume 96 fL (80-100); Mean Platelet Volume 10.3 fL (9.1-12.4); NEUTROPHILS ABSOLUTE AUTO 4.46 K/mm3 (1.96-9.15); NEUTROPHILS PERCENT AUTO 74 % (41-73); Platelet Count 140 K/mm3 (150-400); RDW Standard Deviation 59.3 fL (35.1-46.3); White Blood Cell Count 6.01 K/mm3 (4.00-11.30)
[2021-01-29 05:25] LABS: Albumin, Blood 2.5 g/dL (3.4-5.0); Anion Gap 5 mmol/L (6-16); Blood Urea Nitrogen 13 mg/dL (8-24); Bun/Creatinine Ratio 17.3 (12.0-20.0); CO2, Blood 39 mmol/L (21-32); Calcium, Blood 9.1 mg/dL (8.5-10.1); Chloride, Blood 91 mmol/L (98-108); Creatinine, Blood 0.75 mg/dL (0.40-1.00); Glomerular Filtration Rate >60 (60-); Glucose, Blood 148 mg/dL (70-99); Magnesium, Blood 1.5 mg/dL (1.6-2.4); Phosphorus, Blood 2.1 mg/dL (2.5-4.9); Potassium, Blood 4.9 mmol/L (3.5-5.5); Sodium, Blood 135 mmol/L (136-145)
--- NOTE | 2021-01-29 06:17 | NUR ---
PATIENT'S MG 1.5 THIS MORNING; DR. PIRES NOTIFED AND ORDERS FOR 2G MG IV NOW. PATIENT'S CIWA UP TO 10; MEDICATED ONCE; HEART RATE 120'S AND MEDICATED WITH PRN LOPRESSOR. PATIENT SLEPT ABOUT EIGHT HOURS. NO OTHER ACUTE CHANGES.
--- NOTE | 2021-01-29 07:54 | NUR ---
PATIENT ALERT AND ORIENTED X3. VERY FLAT AND WITHDRAWN. SOFT SPOKEN AND AT TIMES SLOW TO RESPOND. SEEMS TO BE SLIGHTLY MORE TALKATIVE THIS AM THEN PREVIOUS ONE. PERRLA. DENIES NUMBNESS/TINGLING. ON 1 L NASAL CANNULA SATING MID 90'S. SOB WITH EXERTION. CLEAR LUNGS. TELE SHOWING AFIB WITH HR AVERAGE 110. DENIES CHEST PAIN. STATES AT TIMES SHE CAN FEEL PRESSURE WITH BREATHING. BP STABLE. MINIMAL EDEMA IN LOWER EXTREMITIES. DENIES ABDOMINAL PAIN, HX OF HERNIA. BISWAS CATH IN PLACE, DRAINING CLEAR YELLOW URINE. EXCORIATIONS ON BOTTOM AND CRISTINA AREA. CIWA PROTOCOL IN PLACE. STATES AT TIMES SHE IS SEEING PEOPLE THAT SHE KNOWS ARE NOT THERE. PROTONIX AND SANDOSTATIN INFUSING. MAG REPLACED THIS AM. CALL LIGHT IN REACH. EATING BREAKFAST AT THIS TIME.
--- NOTE | 2021-01-29 18:51 | NUR ---
SHIFT SUMMARY: NO ACUTE CHANGES. PATIENT OVERALL SEEMS MORE UPBEAT TODAY AND ENGAGED IN CONVERSATION ASKING QUESTIONS. SEE PREVIOUS NOTES. VITAL SIGNS REMAIN STABLE. NO CHANGES IN TELE. PATIENT SLEEPING AT THIS TIME. NO BOWEL MOVMENT THIS SHIFT. CALL LIGHT IN REACH. WILL CONTINUE TO MONITOR.
--- NOTE | 2021-01-30 06:21 | NUR ---
SHIFT SUMMARY PT RESTED WELL THROUGH THE NIGHT. ALERT AND ORIENTED, BUT HAS FLAT AFFECT. ABLE TO MAKE NEEDS KNOWN. SHOULD KEEP BED ALARM ON PATIENT DOES NOT USE CALL LIGHT FOR NEEDS. SATS >93% ON 1LNC. TELE READS AFIB, RATE 80-90'S. BISWAS IN PLACE, ADEQUATE URINE OUTPUT. NO BM. CIWAS 4, 3, 2. VSS. NO C/O PAIN. CALL LIGHT WITHIN REACH, BED IN LOWEST POSITION. WILL CONTINUE TO MONITOR.
--- NOTE | 2021-01-30 10:02 | NUR ---
CARE ASSUMPTION THIS RN ASSUMED CARE FROM CODY RN AT 0700. PATIENT IS A/OX3. VSS. SPO2 >90% ON 1L NC. PATIENT REPORTS NO CHEST PAIN OR PAIN. SHORTNESS OF BREATH WITH EXERTION. BISWAS IN PLACE DRAINING WITH GRAVITY. CALL LIGHT WITHIN REACH AND BED ALARM ON. WILL CONTINUE TO MONITOR AND PROVIDE CARE.
--- NOTE | 2021-01-30 17:30 | NUR ---
SHIFT SUMMARY PATIENT IS A/OX4. VSS. PATIENT REPORTS A MILD HEADACHE, THAT HAS RESOLVED. CIWA SCORE 0-2. PATIENT REPORTS NO CHEST PAIN OR SOB. PATIENT HAD BACK PAIN EARLIER IN THE DAY AND RECIEVED PAIN MEDICATION FOR RELEIF. NO ACUTE CHANGES THIS SHIFT. CALL LIGHT WITHIN REACH AND BED IN LOWEST POSITION. [facility] AND PROVIDE CARE UNTIL HAND OFF WITH NEXT SHIFT.
--- NOTE | 2021-01-31 05:04 | NUR ---
SHIFT SUMMARY PT ALERT AND ORIENTED X3. AFIB 110-120'S. CARDIZEM AND METOPROLOL HELD DUE TO SYSTOLIC BP <100. ON RA MAINTAINING SATS OVER 92%. ANXIETY AT NIGHT, MANAGED PER EMAR. Q2 TURNS. BISWAS DRAINING YELLOW URINE TO GRAVITY. IN BED RESTING WITH CALL ALARM AT SIDE. WILL CONTINUE TO MONITOR UNTIL REPORT GIVEN
[2021-01-31 05:05] LABS: BASOPHILS ABSOLUTE AUTO 0.05 K/mm3 (0.00-0.23); BASOPHILS PERCENT AUTO 1 % (0-2); EOSINOPHILS ABSOLUTE AUTO 0.03 K/mm3 (0.00-0.68); EOSINOPHILS PERCENT AUTO 0 % (0-6); Hematocrit 35.7 % (33.0-51.0); IMMATURE GRAN ABSOLUTE AUTO 0.09 K/mm3 (0.00-0.10); IMMATURE GRAN PERCENT AUTO 1 % (0-1); LYMPHOCYTES ABSOLUTE AUTO 0.75 K/mm3 (0.84-5.20); LYMPHOCYTES PERCENT AUTO 11 % (21-46); MONOCYTES ABSOLUTE AUTO 1.23 K/mm3 (0.16-1.47); MONOCYTES PERCENT AUTO 18 % (4-13); Mean Corpuscular HGB 31.3 pg (26.0-34.0); Mean Corpuscular HGB Conc 33.6 g/dL (31.5-36.5); Mean Corpuscular Volume 93 fL (80-100); Mean Platelet Volume 11.1 fL (9.1-12.4); NEUTROPHILS ABSOLUTE AUTO 4.63 K/mm3 (1.96-9.15); NEUTROPHILS PERCENT AUTO 68 % (41-73); Platelet Count 183 K/mm3 (150-400); RDW Coefficient Variation 17.2 % (11.7-14.2); RDW Standard Deviation 58.9 fL (35.1-46.3); Red Blood Cell Count 3.84 M/mm3 (3.80-5.20); White Blood Cell Count 6.78 K/mm3 (4.00-11.30)
[2021-01-31 05:23] LABS: Albumin, Blood 2.3 g/dL (3.4-5.0); Anion Gap 7 mmol/L (6-16); Blood Urea Nitrogen 27 mg/dL (8-24); Bun/Creatinine Ratio 31.4 (12.0-20.0); CO2, Blood 37 mmol/L (21-32); Calcium, Blood 9.4 mg/dL (8.5-10.1); Chloride, Blood 94 mmol/L (98-108); Creatinine, Blood 0.86 mg/dL (0.40-1.00); Glomerular Filtration Rate >60 (60-); Glucose, Blood 131 mg/dL (70-99); Magnesium, Blood 1.6 mg/dL (1.6-2.4); Phosphorus, Blood 2.3 mg/dL (2.5-4.9); Potassium, Blood 4.3 mmol/L (3.5-5.5); Sodium, Blood 138 mmol/L (136-145)
--- NOTE | 2021-01-31 17:50 | NUR ---
SHIFT SUMMARY PT HAS SPENT THE DAY RESTING AND INTERMITTENTLY SLEEPING. PT SPENT SEVERAL HOURS IN THE BEDSIDE CHAIR AND WAS ABLE TO MAKE NEEDS KNOWN WHEN THEY WERE READY TO RETURN TO BED. PT C/O DISCOMFORT THAT WAS READILY RECTIFIED WITH REPOSITIONING AND OTHER COMFORT MEASURES. HEART RATE HAS SLOWLY FALLEN OVER THE DAY AND IS NOW HOLDING AT AN AVERAGE OF 92BPM. NIBP READINGS WERE INCONSISTENT WITH THE MACHINE, WITH MANUAL NIBP READINGS WERE CONSISTENT WITH SBP >110. PT EXPRESSED QUESTIONS OVER CURRENT ILLNESS AND PLAN OF CARE, THIS RN PROVIDED PT EDUCATION. NO OTHER CHANGES TO CURRENT CONDITION.
--- NOTE | 2021-02-01 05:13 | NUR ---
SHIFT SUMMARY PT ALERT AND ORIENTED X4. HR AFIB 90'S TO 100. BP SOFT. MANUAL B/P. PT DENIES PAIN. ON RA SATS OVER 92%. C/O ANXIETY AND INSOMNIA. UNABLE TO SLEEP WELL PAST FEW NIGHTS. BISWAS IN PLACE DRAINING YELLOW URINE TO GRAVITY. IN BED WATCHING TV WITH CALL ALARM AT SIDE. WILL CONTINUE TO MONITOR UNTIL REPORT GIVEN
[2021-02-01 06:14] LABS: White Blood Cell Count 6.56 K/mm3 (4.00-11.30)
[2021-02-01 06:15] LABS: BASOPHILS ABSOLUTE AUTO 0.03 K/mm3 (0.00-0.23); BASOPHILS PERCENT AUTO 1 % (0-2); EOSINOPHILS ABSOLUTE AUTO 0.03 K/mm3 (0.00-0.68); EOSINOPHILS PERCENT AUTO 1 % (0-6); Hematocrit 33.7 % (33.0-51.0); Hemoglobin 11.7 g/dL (11.5-16.0); IMMATURE GRAN ABSOLUTE AUTO 0.12 K/mm3 (0.00-0.10); IMMATURE GRAN PERCENT AUTO 2 % (0-1); LYMPHOCYTES ABSOLUTE AUTO 0.89 K/mm3 (0.84-5.20); LYMPHOCYTES PERCENT AUTO 14 % (21-46); MONOCYTES ABSOLUTE AUTO 1.46 K/mm3 (0.16-1.47); MONOCYTES PERCENT AUTO 22 % (4-13); Mean Corpuscular HGB 31.7 pg (26.0-34.0); Mean Corpuscular HGB Conc 34.7 g/dL (31.5-36.5); Mean Corpuscular Volume 91 fL (80-100); Mean Platelet Volume 10.7 fL (9.1-12.4); NEUTROPHILS ABSOLUTE AUTO 4.03 K/mm3 (1.96-9.15); NEUTROPHILS PERCENT AUTO 61 % (41-73); Platelet Count 169 K/mm3 (150-400); RDW Coefficient Variation 17.5 % (11.7-14.2); RDW Standard Deviation 57.4 fL (35.1-46.3); Red Blood Cell Count 3.69 M/mm3 (3.80-5.20)
[2021-02-01 07:13] LABS: Albumin, Blood 2.5 g/dL (3.4-5.0); Anion Gap 8 mmol/L (6-16); Blood Urea Nitrogen 31 mg/dL (8-24); Bun/Creatinine Ratio 31.7 (12.0-20.0); CO2, Blood 34 mmol/L (21-32); Calcium, Blood 9.1 mg/dL (8.5-10.1); Chloride, Blood 97 mmol/L (98-108); Creatinine, Blood 0.98 mg/dL (0.40-1.00); Glomerular Filtration Rate 56 (60-); Glucose, Blood 124 mg/dL (70-99); Phosphorus, Blood 4.5 mg/dL (2.5-4.9); Potassium, Blood 3.5 mmol/L (3.5-5.5); Sodium, Blood 139 mmol/L (136-145)
--- NOTE | 2021-02-01 18:07 | NUR ---
SHIFT SUMMARY PT HAS BEEN RESTING IN ROOM. PT GOT UP TO CHAIR, ONE PERSON ASSIST WITH GAIT BELT AND WALKER, BEDSIDE COMMODE, AND BACK TO BED. THIS ACTIVITY WAS ENOUGH TO TIRE THE PT OUT. THEY TOLERATED THE ACTIVITY WELL. THEY WERE MILDLY SHAKY ON THEIR FEET. PT C/O STIFF NECK AND MILD HEADACHE, TREATED PER EMAR. AT APPROXIMATELY 1400, PT NIBP WAS MEASURED AT 88/46, THIS WAS VERIFIED BY A SECOND RN, WAS THEN NOTIFIED. HEART RATE HAS BEEN 110-120 FOR THE MAJORITY OF THE DAY WITH THE RATE HOLDING STEADY AROUND 130 AT TIME OF THIS NOTE (1814). PT IS CONTINUING TO REST IN BED AT THIS TIME.
--- NOTE | 2021-02-02 04:51 | NUR ---
SHIFT SUMMARY PT ALERT AND ORIENTED X4. HR AFIB 110'S. SATS OVER 90% ON RA. REPORTS MUCH BETTER SLEEP TONIGHT. NO C/O PAIN OR DISCOMFORT. MEPILEX IN PLACE OVER SACRUM. PG IN SHAWNA SALINE LOCKED. IN BED SLEEPING WITH CALL ALARM AT SIDE. WILL CONTINUE TO MONITOR UNTIL REPORT GIVEN
--- NOTE | 2021-02-02 10:58 | NUR ---
ALERT AND ORIENTED X4. NEURO WNL, DENIES NUMBNESS/TINGLING. ON ROOM AIR SATING MID 90'S. DENIES SOB. PT STATES SHE FEELS HER RESPIRATORY STATUS HAS IMPROVED. OCCASIONAL COUGH. TELE SHOWING AFIB WITH HR AVERAGING 130'S THIS AM. BP SOFT. CARDIOLOGY CONSULT PLACED AND DR. BLANKENSHIP IN TO SEE PATIENT. NO SIGNS OF EDEMA. DENIES CHEST PAIN/PRESSURE. 500 ML NS BOLUS GIVEN THIS AM. EATING WELL. TAKES PILLS WHOLE WITH WATER. BED BATH THIS AM. PHYSICAL THERAPY IN TO SEE PATIENT. AT TIMES GETS DIZZY WHEN STANDING AND MOVING TO CHAIR. ONE PERSON ASSIST WITH FWW. BISWAS CATH IN PLACE DRAINING TO GRAVITY. PRESSURE ULCER ON COCCYX/SACRUM. MEPILEX IN PLACE WILL CONTINUE TO MONITOR. CALL LIGHT IN REACH.
[2021-02-02 12:08] LABS: Hematocrit 33.9 % (33.0-51.0); Hemoglobin 11.4 g/dL (11.5-16.0)
[2021-02-02 12:09] LABS: Albumin, Blood 2.3 g/dL (3.4-5.0); Anion Gap 8 mmol/L (6-16); Blood Urea Nitrogen 36 mg/dL (8-24); CO2, Blood 29 mmol/L (21-32); Calcium, Blood 8.5 mg/dL (8.5-10.1); Chloride, Blood 104 mmol/L (98-108); Creatinine, Blood 0.97 mg/dL (0.40-1.00); Glomerular Filtration Rate 56 (60-); Glucose, Blood 115 mg/dL (70-99); Magnesium, Blood 1.7 mg/dL (1.6-2.4); Phosphorus, Blood 2.6 mg/dL (2.5-4.9); Potassium, Blood 3.7 mmol/L (3.5-5.5); Sodium, Blood 141 mmol/L (136-145)
--- NOTE | 2021-02-02 13:52 | NUR ---
PATIENT COMPLAINS OF CHEST PAIN, 07/31. WIRSE WITH BREATHING. CALL PLACED TO DR. BLANKENSHIP. NEW ORDERS. EKG DONE AND IN CHART. BP 101/58 AND HR AVERAGING 130-140'S AT THIS TIME. WILL CONTINUE TO MONITOR.
--- NOTE | 2021-02-02 17:35 | NUR ---
SHIFT SUMMARY: PATIENT REMAINS ALERT AND ORIENTED X4. NEURO WNL. TELE REMAINS AFIB WITH HR 120-130'S. AMIODARONE DRIP INFUSING. BP REMAINS SOFT. COMPLAINS OF MILD CHEST PAIN. RELIEVED WITH MORPHINE. DAUGHTER AT BEDSIDE. ON ROOM AIR. MEPILEX ON BOTTOM IRRITATING PATIENT, REMOVED FOR COMFORT. Q2 TURNING AND NEEDED. PATIENT ABLE TO TURN SELF IN BED. EATING AND DRINKING WATER, TAKING PILLS WHOLE. SLEEPING ON AND OFF. BISWAS CATH REMAINS IN PLACE DRAINING CLEAR/YELLOW URINE. WILL CONTINUE TO MONITOR AND REPORT OFF TO ONCOMING RN.
--- NOTE | 2021-02-02 20:00 | NUR ---
SPOKE WITH DR BLANKENSHIP - PT HR REMAINS AFIB RATE 110-120'S. MD INSTRUCTED TO GIVE ADDITIONAL 150 OF AMIO BOLUS, BUT TO ADMINISTER A 250ML NS BOLUS PRESSURES ARE RUNNING SOFT. BP BEFORE BOLUS 86/62. BP AFTER BOLUS 102/74. WILL START AMIO BOLUS NOW AND CONTINUE AMIO GTT INFUSION WELL. VSS. PT STATES CHEST PAIN IS IMPROVING.
--- NOTE | 2021-02-03 06:01 | NUR ---
SHIFT SUMMARY PT RESTED WELL THROUGH THE NIGHT. ALERT AND ORIENTED, ABLE TO MAKE NEEDS KNOWN. COOPERATIVE WITH PLAN OF CARE. TELE READS AFIB - RATE 110'S, ON AMIO GTT AT THE HALF RATE WITH NO CHANGES IN BP. BP HELD WITH MAP >65 THROUGH NIGHT AFTER 250 NS BOLUS PER MD BLANKENSHIP. PT C/O CHEST PAIN X1 -SEE EMAR. RELIEF WITH PAIN MEDICINE. SATS >95% ON ROOM AIR. BISWAS DRAINING TO GRAVITY, CRISTINA CARE PERFORMED, ADEQUATE UOP. NO BM. PT ABLE TO ASSIST IN TURNING IN BED ON HER OWN. VSS. CALL LIGHT WITHIN REACH, BED IN LOWEST POSITION. WILL CONTINUE TO MONITOR.
--- NOTE | 2021-02-03 07:15 | NUR ---
INITIAL ASSESSMENT: Patient is awake, alert and oriented x4. She reports 8/10 chest pain that gets worse with deep breathing, pt states this started yesterday afternoon. Patient given norco and flexeril for pain. HR irreg, a-fib in the low 100s, amiodarone gtt infusing at 0.5mg/min, 400 mg amiodarone PO given per Dr. Spicer orders-will dc IV gtt. BP good, am meds given. LS dim in the bases, biox wnl on RA. BT +. PT has large abd hernia-she states this is chronic. Patient denies other needs at this time, will continue to monitor.
--- NOTE | 2021-02-03 09:33 | NUR ---
Echocardiogram completed.
--- NOTE | 2021-02-03 17:13 | NUR ---
SUMMARY: PATIENT HAS BEEN RESTING IN BED T/O THE SHIFT. PT IS STILL IN A-FIB WITH RVR, INITIALLY SHE WAS ON AMIODARONE GTT, A PO DOSE WAS GIVEN THIS AM, HOWEVER THIS WAS DC'D AND DIGOXIN WAS ORDERED. PATIENT HAS RECIEVED TWO LOADING DOSES OF DIGOXIN RATE LOW 100S-115, BLOOD PRESSURE REMAINS SOFT. PT HAS BEEN C/O PLEURITIC PAIN, SHE WAS MEDICATED TWICE. NO ACUTE CHANGES THIS SHIFT, WILL REPORT TO ONCOMING RN.
--- NOTE | 2021-02-04 05:28 | NUR ---
SHIFT SUMMARY PT RESTED WELL THROUGH THE NIGHT. ALERT AND ORIENTED, ABLE TO MAKE NEEDS KNOWN. COOPERATIVE WITH PLAN OF CARE. NO C/O CHEST PAIN AT ALL THROUGH NIGHT. DIG LOADED WITH IMPROVEMENTS TO HR - AFIB 90'S. ADEQUATE UOP. NO BM, Q2 TURNS. DID C/O PAIN BACK PAIN - NORCO GIVEN. NO BM. VSS. CALL LIGHT WITHIN REACH, BED IN LOWEST POSITION. WILL CONTINUE TO MONITOR.
[2021-02-04 07:42] LABS: Bun/Creatinine Ratio 35.6 (12.0-20.0); Calcium, Blood 8.8 mg/dL (8.5-10.1); Creatinine, Blood 0.93 mg/dL (0.40-1.00); Potassium, Blood 5.1 mmol/L (3.5-5.5)
--- NOTE | 2021-02-04 08:15 | NUR ---
ASSESSMENT: Patient is up OOB to the chair, alert and oriented. She denies pain at this time. HR irreg, a-fib in the 90s per telemetry, she was dig loaded yesterday and is getting her PO dose this AM. Dr. Spicer increased metoprolol dose to 100mg bid, first dose given-BP stable this AM. BT+, pt has abd hernia she states is chronic. Patient denies other needs at this time. Call light in reach, will continue to monitor.
--- NOTE | 2021-02-04 18:39 | NUR ---
Summary: Patient had a great day. She is in A-Fib, rate has been controlled with digoxin and metoprolol, blood pressures have been stable with medication changes. Patient was able to work with therapy today, she was medicated once for lower back pain with Bimble and Flexaril. She has been downgraded to medical floor status. No acute changes this shift. Will report to oncoming RN.
--- NOTE | 2021-02-05 04:12 | NUR ---
SHIFT SUMMARY PT ARRIVED TO THE UNIT VIA WC ESCORTED BY THIS RN AND PCU AID, TRANSPORT WAS UNREMARKABLE, PT ORIENTED TO NEW ROOM AND GIVEN CALL LIGHT, DISCUSSED THE PLAN FOR THE REST OF THE SHIFT WITH THE PATIENT WHO WAS AGREEABLE, PERFORMED A QUICK ASSESSMENT, PT CONSISTENT c REPORT GIVEN FROM ENTERPRISE INTEGRATION DEVELOPER. NO ACUTE EVETNS THIS SHIFT, CALL LIGHT IN REACH, WILL CTM AND REPORT TO DAY RN.
--- NOTE | 2021-02-05 07:59 | NUR ---
LOW BP DR. WATERS NOTIFIED OF LOW BP. PT IS ASYMPTOMATIC AT THIS TIME. PLAN TO OBSERVE PT FOR ANY CHANGES AND REASSESS BP IN 1 HOUR. PT REPORTS SHE DOES NOT TAKE NORCO AT HOME. SHE IS TAKING WHILE IN THE HOSPITAL TO MANAGE BACK PAIN: SHE REPORTS SHE USUALLY USES CHANGE OF POSITION TO MANAGE PAIN AT HOME. PT EDUCATED TO REMAIN IN BED WHILE BP IS LOW AND CAN ATTEMPT OOB AFTER NEXT BP CHECK IF BP HAS IMPROVED.
--- NOTE | 2021-02-05 11:04 | NUR ---
LOW BP PT'S BP CONTINUES TO BE LOW AT 99/51 WHILE AT REST AND 91/78 WHEN SITTING. PT IS ASYMPTOMATIC WHILE AT REST BUT LIGHTHEADED WHEN SITTING AT THE EDGE OF THE BED. TOPROL HELD PER CLINICAL JUDGEMENT AND INSTRUCTION FROM DR. WATERS. ORDER PLACED FOR REDUCED TOPROL DOSAGE PER DR. WATERS. WILL CONTINUE TO MONITOR.
--- NOTE | 2021-02-05 16:39 | NUR ---
SHIFT SUMMARY PT REMAINS IN THE HOSPITAL R/T LOW BLOOD PRESSURE. PT HAS BEEN SOMEWHAT DIZZY WHEN STANDING OR AMBULATING. PT HAS BEEN USING THE BEDSIDE COMMODE AND IS OOB WITH GAIT BELT AND WALKER. HER HR IS MANAGED. SHE WAS ABLE TO SIT UP TO THE CHAIR AND TOLERATED WELL. PT IS TOLERATING PO. PLAN FOR POSSIBLE DISCHARGE TOMORROW IF BP REMAINS STABLE. WILL MONITOR UNTIL REPORT TO JASSI MEJIAS.
[2021-02-06 06:00] LABS: Anion Gap 9 mmol/L (6-16); Blood Urea Nitrogen 34 mg/dL (8-24); Bun/Creatinine Ratio 38.7 (12.0-20.0); CO2, Blood 27 mmol/L (21-32); Calcium, Blood 9.2 mg/dL (8.5-10.1); Chloride, Blood 103 mmol/L (98-108); Creatinine, Blood 0.88 mg/dL (0.40-1.00); Glomerular Filtration Rate >60 (60-); Glucose, Blood 124 mg/dL (70-99); Potassium, Blood 4.9 mmol/L (3.5-5.5); Sodium, Blood 139 mmol/L (136-145)
--- NOTE | 2021-02-06 06:14 | NUR ---
SUMMARY PT WITH UNEVENTFUL NIGHT.PER TELE REPORT AVERAGE RATE 88-94 I PLACED CALL OUT TO DR BLANKENSHIP TO ASK FOR PARAMETERS REGARDING TOPROL MESSAGE LEFT WITH [employer] SERVICE, WAITING RETURN CALL.
--- NOTE | 2021-02-06 08:11 | NUR ---
RESPIRATIONS CHARTED 02/05/21 AT 1052 AND 1410 SHOULD HAVE BEEN CHARTED UNDER HR AND NOT RESPIRATIONS. ALSO UNABLE TO EDIT VS IT WAS CHARTED USING THE MONITOR.
[2021-02-06] MEDS ORDERED: ELIQUIS5 M2 PO (12:50)
[2021-02-06] MEDS ORDERED: ATOR40TA PO (12:51)
[2021-02-06] MEDS ORDERED: LANOXIN125 MCG PO (12:52)
[2021-02-06] MEDS ORDERED: METO50ER PO (12:53)
[2021-02-06] MEDS ORDERED: TORS10 PO (12:55)
--- NOTE | 2021-02-06 12:56 | NUR ---
DISCHARGE PT PROVIDED WITH WRITTEN AND VERBAL DISCHARGE INSTRUCTIONS. PT REPORTED UNDERSTANDING. PAIN MANAGED WITH TYLENOL AT DISCHARGE, PT SENT WITH PRESCRIPTION FOR OXYCODONE NEEDED AND PROVIDED EDUCATION REGARDING THIS MEDICATION. PT HAD SCANT RED DRAINAGE FROM RUQ ABD SITE, SITE APPEARED TO HAVE STOPPED DRAINING AT TIME OF DISCHARGE. PT DENIED PASSING FLATUS BEFORE DISCHARGE BUT DID HAVE ACTIVE BOWEL SOUNDS X4 QUADRANTS AND TOLERATED PO. PT EDUCATED TO AMBULATE TO ENCOURAGE RETURN OF BOWEL FUNCTION AND TO PREVENT DVT'S. PT ESCORTED OUT IN W/C BY TAZ STUDENT NURSE.
--- NOTE | 2021-02-06 16:09 | NUR ---
1550 discharged to home with daughter. pt herberth po food and fluids without nausea. pt ambulating in room to bathroom with standby assist pt reports slightly lightheaded when first sits on edge of bed but states it passes within 30 sec of sitting. pt slight redness to groin and buttocks, no open areas and reports is feeling much better
== END 2021-02-06 15:50 | disposition home or self-care (01) | DRG 896 ==
LOC: ER 14:02 → ERHOLD 14:03 → EDBEDREQSVC 01-27 02:20 → EDBEDREQ 01-27 02:20 → PCU 01-27 15:21 → SURS 02-04 21:14
PROVIDERS: Emergency Medicine; Family Medicine; Internal Medicine; Internal Medicine Cardiovascular Disease; Student in an Organized Health Care Education/Training Program; ADMIT Internal Medicine
DX: F10.129 Alcohol abuse with intoxication, unspecified (principal); J96.22 Acute and chronic respiratory failure with hypercapnia; J96.21 Acute and chronic respiratory failure with hypoxia; I42.9 Cardiomyopathy, unspecified; I50.22 Chronic systolic (congestive) heart failure; J44.1 Chronic obstructive pulmonary disease with (acute) exacerbation; I42.8 Other cardiomyopathies; J44.9 Chronic obstructive pulmonary disease, unspecified; F41.9 Anxiety disorder, unspecified; I48.0 Paroxysmal atrial fibrillation; F17.210 Nicotine dependence, cigarettes, uncomplicated; Z88.2 Allergy status to sulfonamides; Z88.0 Allergy status to penicillin; Z98.890 Other specified postprocedural states; Z90.710 Acquired absence of both cervix and uterus; Z90.49 Acquired absence of other specified parts of digestive tract; Z88.8 Allergy status to other drugs, medicaments and biological substances; Z79.82 Long term (current) use of aspirin; E87.5 Hyperkalemia; L89.301 Pressure ulcer of unspecified buttock, stage 1; I11.0 Hypertensive heart disease with heart failure; F10.239 Alcohol dependence with withdrawal, unspecified; I95.1 Orthostatic hypotension
CPT/HCPCS: 0241U; 36415; 36600; 70450; 71045; 71260; 80048; 80053; 80069; 81003; 82140; 82550; 82553; 82803; 82947; 83735; 83880; 84100; 84145; 84443; 85014; 85018; 85025; 93005; 93010; 93306; 94640; 94664; 94760; 94762; 96365; 96366; 96367; 96368; 96372; 96375; 96376; 97110; 97116; 97162; 97166; 97530; 97535; 99285-25; A9270; C1751; C9113; G0378; G0480; J0282; J1160; J1650; J1940; J1956; J2060; J2270; J2354; J3411; J3475; J7030; J7050; J7060; J7120; Q9967

== ENCOUNTER 2021-03-10 10:45 | Emergency (ER) | payer MEDICARE, OTHER ==
[~2021-03-10] VITALS: Ht 160 cm; Wt 77.1 kg
[~2021-03-10 10:45] MED LIST changes: +ATOR40TA PO; +ELIQUIS5 M2 PO; +LANOXIN125 MCG PO; +METO50ER PO; +SERT100; +TORS10 PO
[2021-03-10 11:17] LABS: BASOPHILS ABSOLUTE AUTO 0.07 K/mm3 (0.00-0.23); BASOPHILS PERCENT AUTO 1 % (0-2); EOSINOPHILS ABSOLUTE AUTO 0.04 K/mm3 (0.00-0.68); EOSINOPHILS PERCENT AUTO 0 % (0-6); Hematocrit 40.1 % (33.0-51.0); Hemoglobin 12.5 g/dL (11.5-16.0); IMMATURE GRAN ABSOLUTE AUTO 0.05 K/mm3 (0.00-0.10); IMMATURE GRAN PERCENT AUTO 1 % (0-1); LYMPHOCYTES ABSOLUTE AUTO 1.24 K/mm3 (0.84-5.20); LYMPHOCYTES PERCENT AUTO 13 % (21-46); MONOCYTES ABSOLUTE AUTO 0.79 K/mm3 (0.16-1.47); MONOCYTES PERCENT AUTO 8 % (4-13); Mean Corpuscular HGB Conc 31.2 g/dL (31.5-36.5); Mean Corpuscular Volume 96 fL (80-100); Mean Platelet Volume 10.7 fL (9.1-12.4); NEUTROPHILS PERCENT AUTO 78 % (41-73); Platelet Count 345 K/mm3 (150-400); RDW Coefficient Variation 15.6 % (11.7-14.2); RDW Standard Deviation 55.3 fL (35.1-46.3); Red Blood Cell Count 4.17 M/mm3 (3.80-5.20); White Blood Cell Count 9.89 K/mm3 (4.00-11.30)
[2021-03-10 11:39] LABS: Alanine Aminotransfer (ALT/SGP 40 U/L (12-78); Albumin, Blood 3.4 g/dL (3.4-5.0); Alk Phos 148 U/L (50-136); Anion Gap 6 mmol/L (6-16); Aspartate Aminotrans (AST/SGOT 31 U/L (12-37); Bilirubin, Total 0.2 mg/dL (0.1-1.0); Blood Urea Nitrogen 14 mg/dL (8-24); Bun/Creatinine Ratio 18.1 (12.0-20.0); CO2, Blood 33 mmol/L (21-32); Calcium, Blood 9.2 mg/dL (8.5-10.1); Chloride, Blood 101 mmol/L (98-108); Creatinine, Blood 0.78 mg/dL (0.40-1.00); Globulin, Blood 3.4 g/dL (2.2-4.0); Glomerular Filtration Rate >60 (60-); Glucose, Blood 183 mg/dL (70-99); Sodium, Blood 140 mmol/L (136-145); Total Protein, Blood 6.8 g/dL (6.4-8.2); Troponin I <0.015 ng/mL (0.000-0.040)
[2021-03-10 11:50] LABS: Ethanol (Alcohol), Blood, Med <3 mg/dL
[2021-03-10 12:01] LABS: Digoxin (Lanoxin) 0.43 ug/mL (0.80-2.00)
[2021-03-10] MEDS ORDERED: Prednisone20 MG PO (12:46)
== END 2021-03-10 13:16 | disposition home or self-care (01) ==
LOC: ER 10:45
PROVIDERS: Emergency Medicine
DX: J44.9 Chronic obstructive pulmonary disease, unspecified (principal); I11.0 Hypertensive heart disease with heart failure; I50.9 Heart failure, unspecified; F17.200 Nicotine dependence, unspecified, uncomplicated; Z88.0 Allergy status to penicillin; Z88.2 Allergy status to sulfonamides; Z79.899 Other long term (current) drug therapy
CPT/HCPCS: 71045; 80053; 80162; 83880; 84484; 85025; 93005; 93010; 96374; 99285-25; A9270; G0480; J2930

== ENCOUNTER 2021-03-21 00:20 | Observation (INO) | payer MEDICARE, OTHER ==
[~2021-03-21] VITALS: Ht 160 cm; Wt 79.4 kg
[~2021-03-21 00:20] MED LIST changes: +Prednisone20 MG PO
[2021-03-21 01:04] LABS: BASOPHILS ABSOLUTE AUTO 0.04 K/mm3 (0.00-0.23); BASOPHILS PERCENT AUTO 0 % (0-2); EOSINOPHILS ABSOLUTE AUTO 0.08 K/mm3 (0.00-0.68); EOSINOPHILS PERCENT AUTO 1 % (0-6); Hematocrit 38.3 % (33.0-51.0); Hemoglobin 12.1 g/dL (11.5-16.0); IMMATURE GRAN ABSOLUTE AUTO 0.07 K/mm3 (0.00-0.10); IMMATURE GRAN PERCENT AUTO 1 % (0-1); LYMPHOCYTES ABSOLUTE AUTO 1.11 K/mm3 (0.84-5.20); LYMPHOCYTES PERCENT AUTO 10 % (21-46); MONOCYTES ABSOLUTE AUTO 1.01 K/mm3 (0.16-1.47); MONOCYTES PERCENT AUTO 9 % (4-13); Mean Corpuscular HGB 30.4 pg (26.0-34.0); Mean Corpuscular HGB Conc 31.6 g/dL (31.5-36.5); Mean Corpuscular Volume 96 fL (80-100); Mean Platelet Volume 10.8 fL (9.1-12.4); NEUTROPHILS ABSOLUTE AUTO 9.21 K/mm3 (1.96-9.15); NEUTROPHILS PERCENT AUTO 80 % (41-73); Platelet Count 219 K/mm3 (150-400); RDW Coefficient Variation 15.9 % (11.7-14.2); RDW Standard Deviation 56.1 fL (35.1-46.3); Red Blood Cell Count 3.98 M/mm3 (3.80-5.20); White Blood Cell Count 11.52 K/mm3 (4.00-11.30)
[2021-03-21 01:33] LABS: Alanine Aminotransfer (ALT/SGP 74 U/L (12-78); Albumin, Blood 3.3 g/dL (3.4-5.0); Albumin/Globulin Ratio 1.1 (0.8-1.8); Alk Phos 130 U/L (50-136); Anion Gap 4 mmol/L (6-16); Aspartate Aminotrans (AST/SGOT 44 U/L (12-37); Bilirubin, Total 0.3 mg/dL (0.1-1.0); Blood Urea Nitrogen 19 mg/dL (8-24); Bun/Creatinine Ratio 26.3 (12.0-20.0); CO2, Blood 38 mmol/L (21-32); Calcium, Blood 9.3 mg/dL (8.5-10.1); Chloride, Blood 97 mmol/L (98-108); Creatinine, Blood 0.72 mg/dL (0.40-1.00); Globulin, Blood 3.1 g/dL (2.2-4.0); Glomerular Filtration Rate >60 (60-); Glucose, Blood 151 mg/dL (70-99); Sodium, Blood 139 mmol/L (136-145); Total Protein, Blood 6.4 g/dL (6.4-8.2); Troponin I <0.015 ng/mL (0.000-0.040)
--- NOTE | 2021-03-21 05:11 | NUR ---
SHIFT SUMMARY RECIEVED REPORT FROM JUSTINE @679. ARRIVED TO MEDICAL UNIT @ 7850. ORIENTED TO ROOM AND CALL SYSTEM. A/O, ABLE TO MAKE NEEDS KNOWN. COOPERATIVE WITH CARE. NO C/O PAIN/DISCOMFORT. TELE STATES AFIB IN LOW 100's. CURRENTLY 3L VIA GA. PURWICK TO SUCTION. NO ACUTE NEEDS AT THIS TIME. BED IN LOWEST. CALL LIGHT AND BELONGINGS WITHIN REACH. REPORT TO ONCOMING RN.
[2021-03-21 05:39] LABS: Anion Gap 4 mmol/L (6-16); Blood Urea Nitrogen 17 mg/dL (8-24); Bun/Creatinine Ratio 21.3 (12.0-20.0); CO2, Blood 41 mmol/L (21-32); Calcium, Blood 9.8 mg/dL (8.5-10.1); Chloride, Blood 96 mmol/L (98-108); Glomerular Filtration Rate >60 (60-); Glucose, Blood 132 mg/dL (70-99); Potassium, Blood 4.2 mmol/L (3.5-5.5); Sodium, Blood 141 mmol/L (136-145)
[2021-03-21 09:49] LABS: Influenza A, PCR NEGATIVE (NEGATIVE); Influenza B, PCR NEGATIVE (NEGATIVE); Resp Syncytial Virus, PCR NEGATIVE (NEGATIVE); SARS-Cov-2 (COVID-19) PCR, MMC NEGATIVE (NEGATIVE)
--- NOTE | 2021-03-21 17:44 | NUR ---
SHIFT SUMMARY PATIENT DENIES PAIN, NAUSEA, AND SHORTNESS OF BREATH AT REST. PATIENT IS ON 3L VIA N/C, MAINTAINING SATS ABOVE 92%. PATIENT REPORTS SOB WITH ACTIVITY, PATIENT ALSO DESATS WITH ACTIVITY. PATIENT REQUIRES 4L WITH AMBULATION DURING PT EVAL. PT WORKED WITH PATIENT. PATIENT IS A SBA TO THE BATHROOM. PATIENT IS EATING AND DRINKING WELL. PATIENT IS PLEASANT AND COOPERATIVE WITH CARE.
[2021-03-21 18:14] LABS: U Amphetamine Screen Not Detected; U Barbituate Screen Not Detected; U Benzodiazapine Screen Not Detected; U Buprenorphine Screen Not Detected; U Cannabinoids Screen Not Detected; U Cocaine Screen Not Detected; U Methadone Screen Not Detected; U Methamphetamine Screen Not Detected; U Opiates Screen Not Detected; U Oxycodone Screen Not Detected; U Phencyclidine Screen Not Detected; U Propoxyphene Screen Not Detected
--- NOTE | 2021-03-22 04:46 | NUR ---
SHIFT SUMMARY A/O, ABLE TO MAKE NEEDS KNOWN. COOPERATIVE WITH CARE. ANSWERS QUESTIONS APPROPRIATLEY. NO C/O PAIN/DISCOMFORT. TELE REMAINS AFIB IN 110s. REMAINS ON 3L VIA NC. APPEARED TO REST MUCH OF THE NIGHT. NO ACUTE CHANGES NOTED OVERNIGHT. BED REMAINS IN LOWEST POSITION. CALL LIGHT AND BELONGINGS WITHIN REACH. REPORT TO ONCOMING RN.
[2021-03-22 05:07] LABS: BASOPHILS ABSOLUTE AUTO 0.04 K/mm3 (0.00-0.23); BASOPHILS PERCENT AUTO 0 % (0-2); EOSINOPHILS ABSOLUTE AUTO 0.07 K/mm3 (0.00-0.68); EOSINOPHILS PERCENT AUTO 1 % (0-6); Hemoglobin 12.8 g/dL (11.5-16.0); IMMATURE GRAN ABSOLUTE AUTO 0.03 K/mm3 (0.00-0.10); IMMATURE GRAN PERCENT AUTO 0 % (0-1); LYMPHOCYTES ABSOLUTE AUTO 1.33 K/mm3 (0.84-5.20); LYMPHOCYTES PERCENT AUTO 13 % (21-46); MONOCYTES PERCENT AUTO 10 % (4-13); Mean Corpuscular HGB 29.8 pg (26.0-34.0); Mean Corpuscular HGB Conc 31.2 g/dL (31.5-36.5); Mean Corpuscular Volume 95 fL (80-100); Mean Platelet Volume 10.2 fL (9.1-12.4); NEUTROPHILS ABSOLUTE AUTO 7.67 K/mm3 (1.96-9.15); NEUTROPHILS PERCENT AUTO 76 % (41-73); Platelet Count 234 K/mm3 (150-400); RDW Coefficient Variation 15.9 % (11.7-14.2); RDW Standard Deviation 55.8 fL (35.1-46.3); White Blood Cell Count 10.14 K/mm3 (4.00-11.30)
[2021-03-22 06:26] LABS: Bun/Creatinine Ratio 20.6 (12.0-20.0); C-REACTIVE PROTEIN, EXT RANGE 1.84 mg/dL (0.000-0.300); Calcium, Blood 8.8 mg/dL (8.5-10.1); Creatinine, Blood 0.97 mg/dL (0.40-1.00); Magnesium, Blood 1.8 mg/dL (1.6-2.4); Phosphorus, Blood 3.7 mg/dL (2.5-4.9); Potassium, Blood 3.9 mmol/L (3.5-5.5)
[2021-03-22 06:36] LABS: Thyroid Stimulating Hormone 4.05 uIU/mL (0.360-4.800)
[2021-03-22] MEDS ORDERED: CEFP200 PO (09:52)
[2021-03-22] MEDS ORDERED: AZIT500 PO (09:52)
[2021-03-22] MEDS ORDERED: Q-Tussin100 MG/5 M PO (09:54)
[2021-03-22] MEDS ORDERED: LISI5 PO (09:55)
[2021-03-22] MEDS ORDERED: ONDA4ODT MM (09:57)
[2021-03-22] MEDS ORDERED: POTA10T PO (09:58)
[2021-03-22] MEDS ORDERED: VISBIOME 112.51 EACH PO (09:59)
--- NOTE | 2021-03-22 12:48 | NUR ---
DISCHARGE PATIENT TRANSPORTED VIA WHEELCHAIR TO PRIVATE VEHICLE. DISCHARGE INSTRUCTIONS EXPLAINED TO PATIENT. PATIENT STATED UNDERSTANDING. PACKET SENT WITH PATIENT. BELONGINGS SENT WITH PATIENT. IV REMOVED WITHOUT DIFFICULTY. TELE REMOVED WITHOUT DIFFICULTY. HOME O2 EVAL DONE BY RT. PATIENT SENT WITH HER OWN PORTABLE O2 TANK.
--- NOTE | 2021-03-22 12:50 | NUR ---
DISCHARGE MEDICATIONS FAXED TO PREFERRED PHARMACY. PATIENT TO SCHEDULE FOLLOW UP WITH PCP.
== END 2021-03-22 12:48 | disposition home health service (06) ==
LOC: ER 00:20 → MEDS 03:40 → ENPENDDIS 03-22 09:28 → MEDS 03-22 12:48
PROVIDERS: Family Medicine; ADMIT Internal Medicine
DX: I11.0 Hypertensive heart disease with heart failure (principal); I50.23 Acute on chronic systolic (congestive) heart failure; J96.01 Acute respiratory failure with hypoxia; I43 Cardiomyopathy in diseases classified elsewhere; I48.91 Unspecified atrial fibrillation; J44.9 Chronic obstructive pulmonary disease, unspecified; M32.9 Systemic lupus erythematosus, unspecified; F41.9 Anxiety disorder, unspecified; F17.210 Nicotine dependence, cigarettes, uncomplicated; Z88.0 Allergy status to penicillin; Z88.2 Allergy status to sulfonamides; Z79.01 Long term (current) use of anticoagulants; Z20.822 Contact with and (suspected) exposure to COVID-19
CPT/HCPCS: 0241U; 36415; 71046; 80048; 80053; 80162; 83735; 83880; 84100; 84145; 84443; 84484; 85025; 86140; 93005; 93010; 97110; 97161; 97530; A9270; J0696; J1940; J7050

== ENCOUNTER 2021-05-28 21:26 | Emergency (ER) | payer MEDICARE, OTHER ==
[~2021-05-28] VITALS: Ht 160 cm; Wt 77.1 kg
[~2021-05-28 21:26] MED LIST changes: +AZIT500 PO; +CEFP200 PO; +LISI5 PO; +METO100ER PO; -METO50ER PO; +ONDA4ODT MM; +POTA10T PO; +Q-Tussin100 MG/5 M PO; +VISBIOME 112.51 EACH PO
[2021-05-28 22:04] LABS: BASOPHILS ABSOLUTE AUTO 0.02 K/mm3 (0.00-0.23); BASOPHILS PERCENT AUTO 0 % (0-2); EOSINOPHILS ABSOLUTE AUTO 0.01 K/mm3 (0.00-0.68); EOSINOPHILS PERCENT AUTO 0 % (0-6); Hematocrit 35.1 % (33.0-51.0); Hemoglobin 12.3 g/dL (11.5-16.0); IMMATURE GRAN ABSOLUTE AUTO 0.03 K/mm3 (0.00-0.10); IMMATURE GRAN PERCENT AUTO 1 % (0-1); LYMPHOCYTES PERCENT AUTO 23 % (21-46); MONOCYTES ABSOLUTE AUTO 0.45 K/mm3 (0.16-1.47); MONOCYTES PERCENT AUTO 10 % (4-13); Mean Corpuscular Volume 86 fL (80-100); Mean Platelet Volume 9.6 fL (9.1-12.4); NEUTROPHILS ABSOLUTE AUTO 3.13 K/mm3 (1.96-9.15); NEUTROPHILS PERCENT AUTO 66 % (41-73); Platelet Count 175 K/mm3 (150-400); RDW Coefficient Variation 14.8 % (11.7-14.2); RDW Standard Deviation 45.5 fL (35.1-46.3); White Blood Cell Count 4.74 K/mm3 (4.00-11.30)
[2021-05-28 22:27] LABS: Alanine Aminotransfer (ALT/SGP 52 U/L (12-78); Albumin, Blood 3.3 g/dL (3.4-5.0); Albumin/Globulin Ratio 1.1 (0.8-1.8); Alk Phos 230 U/L (50-136); Anion Gap 21 mmol/L (6-16); Aspartate Aminotrans (AST/SGOT 67 U/L (12-37); Bilirubin, Total 0.6 mg/dL (0.1-1.0); Blood Urea Nitrogen 16 mg/dL (8-24); Bun/Creatinine Ratio 22.8 (12.0-20.0); CO2, Blood 25 mmol/L (21-32); Calcium, Blood 8.3 mg/dL (8.5-10.1); Chloride, Blood 77 mmol/L (98-108); Globulin, Blood 3.1 g/dL (2.2-4.0); Glomerular Filtration Rate >60 (60-); Glucose, Blood 80 mg/dL (70-99); Potassium, Blood 3.9 mmol/L (3.5-5.5); Sodium, Blood 123 mmol/L (136-145); Total Protein, Blood 6.4 g/dL (6.4-8.2)
[2021-05-28 22:43] LABS: Influenza A, PCR NEGATIVE (NEGATIVE); Influenza B, PCR NEGATIVE (NEGATIVE); Resp Syncytial Virus, PCR NEGATIVE (NEGATIVE); SARS-Cov-2 (COVID-19) PCR, MMC NEGATIVE (NEGATIVE)
[2021-05-29 03:06] LABS: Source, Urine Clean Catch
[2021-05-29 03:12] LABS: Bilirubin, Urine Neg (Neg); Blood, Urine Neg (Neg); Glucose Qualitative, Urine Neg (Neg); Ketones, Urine 2+ (Neg); Leukocyte Esterase, Urine Neg (Neg); Nitrite, Urine Neg (Neg); Protein, Urine 1+ (Neg); Specific Gravity, Urine 1.005 (1.003-1.022); Urobilinogen, Urine NORM (Normal)
[2021-05-29 03:21] LABS: Appearance, Urine Clear (Clear); Color, Urine Pale Yellow (P-Yellow)
[2021-05-29] MEDS ORDERED: ONDA4ODT MM (05:27)
[2021-05-29] MEDS ORDERED: LIDO700A20 TOP (05:27)
== END 2021-05-29 08:47 | disposition home or self-care (01) ==
LOC: ER 21:26
PROVIDERS: Emergency Medicine
DX: S22.089A Unspecified fracture of T11-T12 vertebra, initial encounter for closed fracture (principal); R11.2 Nausea with vomiting, unspecified; J44.9 Chronic obstructive pulmonary disease, unspecified; I10 Essential (primary) hypertension; Z20.822 Contact with and (suspected) exposure to COVID-19; Z88.0 Allergy status to penicillin; Z88.2 Allergy status to sulfonamides; Z79.899 Other long term (current) drug therapy; F17.210 Nicotine dependence, cigarettes, uncomplicated; W19.XXXA Unspecified fall, initial encounter
CPT/HCPCS: 0241U; 74177; 80053; 85025; 93005; 93010; 96374; 96375; 96376; 99285-25; J7030; Q9967

== ENCOUNTER 2021-07-21 12:22 | Emergency (ER) | payer MEDICARE, OTHER ==
[~2021-07-21] VITALS: Ht 160 cm; Wt 117.9 kg
[~2021-07-21 12:22] MED LIST changes: +LIDO700A20 TOP; -METO100ER PO; +METO50ER PO
[2021-07-21 14:32] LABS: BASOPHILS ABSOLUTE AUTO 0.07 K/mm3 (0.00-0.23); BASOPHILS PERCENT AUTO 1 % (0-2); EOSINOPHILS ABSOLUTE AUTO 0.13 K/mm3 (0.00-0.68); EOSINOPHILS PERCENT AUTO 1 % (0-6); Hematocrit 38.2 % (33.0-51.0); Hemoglobin 12.4 g/dL (11.5-16.0); IMMATURE GRAN PERCENT AUTO 1 % (0-1); LYMPHOCYTES ABSOLUTE AUTO 0.99 K/mm3 (0.84-5.20); LYMPHOCYTES PERCENT AUTO 9 % (21-46); MONOCYTES ABSOLUTE AUTO 1.25 K/mm3 (0.16-1.47); MONOCYTES PERCENT AUTO 11 % (4-13); Mean Corpuscular HGB 32.5 pg (26.0-34.0); Mean Corpuscular HGB Conc 32.5 g/dL (31.5-36.5); Mean Corpuscular Volume 100 fL (80-100); Mean Platelet Volume 9.4 fL (9.1-12.4); NEUTROPHILS ABSOLUTE AUTO 9.06 K/mm3 (1.96-9.15); NEUTROPHILS PERCENT AUTO 78 % (41-73); Platelet Count 305 K/mm3 (150-400); RDW Coefficient Variation 18.4 % (11.7-14.2); RDW Standard Deviation 68.3 fL (35.1-46.3); Red Blood Cell Count 3.81 M/mm3 (3.80-5.20)
[2021-07-21 14:51] LABS: Albumin, Blood 3.1 g/dL (3.4-5.0); Albumin/Globulin Ratio 0.8 (0.8-1.8); Bilirubin, Total 0.3 mg/dL (0.1-1.0); Bun/Creatinine Ratio 15.4 (12.0-20.0); Calcium, Blood 9.1 mg/dL (8.5-10.1); Creatinine, Blood 0.52 mg/dL (0.40-1.00); Globulin, Blood 3.9 g/dL (2.2-4.0); Potassium, Blood 3.8 mmol/L (3.5-5.5)
== END 2021-07-21 18:25 | disposition home or self-care (01) ==
LOC: ER 12:22
PROVIDERS: Physician Assistant
DX: I48.91 Unspecified atrial fibrillation (principal); F17.210 Nicotine dependence, cigarettes, uncomplicated; Z79.01 Long term (current) use of anticoagulants; Z79.899 Other long term (current) drug therapy; Z88.0 Allergy status to penicillin; Z88.2 Allergy status to sulfonamides
CPT/HCPCS: 71046; 80053; 83690; 83880; 84484; 85025; 93005; 93010

== ENCOUNTER 2021-07-24 07:36 | Day surgery (SDC) | payer MEDICARE, OTHER ==
[~2021-07-24] VITALS: Ht 160 cm; Wt 75.0 kg
[2021-07-24] MEDS ORDERED: Amiodarone HCl200 MG PO (07:57)
--- NOTE | 2021-07-24 10:05 | NUR ---
PT IS DROWSY, BUT EASILY ROUSABLE, DENIES PAIN POST CARDIOVERSION. PT IN SR 60-70'S, VSS, SPO2 97-98% 3L NC.
--- NOTE | 2021-07-24 10:50 | NUR ---
PT DRESSED WITH ASSISTANCE, IV REMOVED-CANNULA INTACT.
--- NOTE | 2021-07-24 10:54 | NUR ---
PT AND DAUGHTER RECEIVED DISCHARGE INSTRUCTIONS, MED LIST AND AFTER CARE INSTRUCTIONS; VERBALIZED GOOD UNDERSTANDING. PT LEFT FACILITY VIA W/C, CONDITION STABLE.
== END 2021-07-24 23:23 | disposition home or self-care (01) ==
LOC: MHTC 07:36
DX: I48.91 Unspecified atrial fibrillation (principal); I42.8 Other cardiomyopathies; J96.01 Acute respiratory failure with hypoxia; I11.0 Hypertensive heart disease with heart failure; G89.29 Other chronic pain; J44.9 Chronic obstructive pulmonary disease, unspecified; I50.23 Acute on chronic systolic (congestive) heart failure; E78.5 Hyperlipidemia, unspecified; Z88.2 Allergy status to sulfonamides; Z88.0 Allergy status to penicillin; Z79.01 Long term (current) use of anticoagulants
CPT/HCPCS: 92960; 93005; 93010; J2704; J7030

== ENCOUNTER 2021-08-04 00:23 | Inpatient (IN) | payer MEDICARE, OTHER ==
[~2021-08-04] VITALS: Ht 160 cm; Wt 74.8 kg
[~2021-08-04 00:23] MED LIST changes: +Amiodarone HCl200 MG PO; +METO100ER PO; -METO50ER PO
[2021-08-04 01:30] LABS: BASOPHILS ABSOLUTE AUTO 0.04 K/mm3 (0.00-0.23); BASOPHILS PERCENT AUTO 0 % (0-2); EOSINOPHILS ABSOLUTE AUTO 0.23 K/mm3 (0.00-0.68); EOSINOPHILS PERCENT AUTO 3 % (0-6); Hemoglobin 9.9 g/dL (11.5-16.0); IMMATURE GRAN ABSOLUTE AUTO 0.09 K/mm3 (0.00-0.10); IMMATURE GRAN PERCENT AUTO 1 % (0-1); LYMPHOCYTES ABSOLUTE AUTO 0.58 K/mm3 (0.84-5.20); LYMPHOCYTES PERCENT AUTO 6 % (21-46); MONOCYTES ABSOLUTE AUTO 0.93 K/mm3 (0.16-1.47); MONOCYTES PERCENT AUTO 10 % (4-13); Mean Corpuscular HGB Conc 34.1 g/dL (31.5-36.5); Mean Corpuscular Volume 97 fL (80-100); Mean Platelet Volume 9.7 fL (9.1-12.4); NEUTROPHILS ABSOLUTE AUTO 7.19 K/mm3 (1.96-9.15); NEUTROPHILS PERCENT AUTO 79 % (41-73); Platelet Count 288 K/mm3 (150-400); RDW Coefficient Variation 17.3 % (11.7-14.2); RDW Standard Deviation 60.2 fL (35.1-46.3); White Blood Cell Count 9.06 K/mm3 (4.00-11.30)
[2021-08-04] MEDS ORDERED: SERT100 PO (01:37)
[2021-08-04 01:48] LABS: Albumin, Blood 3.1 g/dL (3.4-5.0); Albumin/Globulin Ratio 0.9 (0.8-1.8); Bilirubin, Total 0.7 mg/dL (0.1-1.0); Bun/Creatinine Ratio 32.7 (12.0-20.0); Calcium, Blood 8.5 mg/dL (8.5-10.1); Creatinine, Blood 0.67 mg/dL (0.40-1.00); Globulin, Blood 3.3 g/dL (2.2-4.0); Potassium, Blood 3.5 mmol/L (3.5-5.5); Total Protein, Blood 6.4 g/dL (6.4-8.2)
[2021-08-04 02:07] LABS: Influenza A, PCR NEGATIVE (NEGATIVE); Influenza B, PCR NEGATIVE (NEGATIVE); Resp Syncytial Virus, PCR NEGATIVE (NEGATIVE); SARS-Cov-2 (COVID-19) PCR, MMC NEGATIVE (NEGATIVE)
[2021-08-04] MEDS ORDERED: DIGOX125 MC1 PO (05:38)
[2021-08-04] MEDS ORDERED: ATOR40TA PO (05:39)
--- NOTE | 2021-08-04 05:57 | NUR ---
Transfer report from Iris MANDUJANO RN on PT with HX of COPD Cardiomyopathy CHF Afib falls on anticoagulant & incontinent of bowel & bladder. Oxygen dependant 3 l nc & smoker per report. Hx of alcoholism & decubidus ulcers. Await admission.
[2021-08-04] MEDS ORDERED: FLUTICASONE-SA1 EAC9 INH (07:54)
[2021-08-04] MEDS ORDERED: KLOR-CON 1010 ME1 PO (07:55)
[2021-08-04] MEDS ORDERED: ZOLOFT50 MG PO (07:55)
[2021-08-04 08:00] LABS: CPK Creatine Kinase 461 U/L (26-193); Digoxin (Lanoxin) 0.17 ug/mL (0.80-2.00)
[2021-08-04 08:17] LABS: Creatine Kinase MB 5.7 ng/mL (0.0-3.6); Creatine Kinase MB Index 1.2 (0.0-4.0)
[2021-08-04 11:35] LABS: Source, Urine Foley catheter
[2021-08-04 11:38] LABS: Appearance, Urine Hazy (Clear); Bilirubin, Urine Neg (Neg); Blood, Urine 1+ (Neg); Color, Urine Yellow (P-Yellow); Glucose Qualitative, Urine Neg (Neg); Ketones, Urine Neg (Neg); Leukocyte Esterase, Urine 2+ (Neg); Nitrite, Urine Pos (Neg); Protein, Urine Neg (Neg); Urobilinogen, Urine NORM (Normal)
[2021-08-04 12:00] LABS: Bacteria Many /hpf; Red Blood Cells, Urine 0-2 /hpf (0-2); Squamous Epithelial Cells Not Seen /hpf (Few)
[2021-08-04 12:01] LABS: Amorphous Mod (0-Heavy)
--- NOTE | 2021-08-04 12:45 | NUR ---
[facility] CALLED AND REPORTED PT NOTED TO HAVE A INCREASE IN PVC'S SINCE 1100. DR JOHNSON NOTIFIED, DR JOHNSON TO PLACE ORDERS FOR POTASSIUM. DR JOHNSON ALSO NOTIFIED OF URINALYSIS RESULTS.
[2021-08-04 15:14] LABS: Creatine Kinase MB 7.3 ng/mL (0.0-3.6); Creatine Kinase MB Index 1.9 (0.0-4.0)
--- NOTE | 2021-08-04 15:38 | NUR ---
CRITICAL TROPONIN OF 279. PT REPORTS SOME CHEST TIGHTNESS FOR THE PAST COUPLE DAYS PER PATIENT. DR JOHNSON NOTIFIED, CARDIOLOGY CONSULT AND ECHO ORDERS PLACED.
--- NOTE | 2021-08-04 15:40 | NUR ---
PT HAD AN EPISODE OF INCONT STOOL, STOOL DARK IN COLOR WITH STRONG ODOR. DR JOHNSON NOTIFIED OF STOOL WELL HGB OF 9.9. STOOL SENT FOR GUAIAC, ORDERS RECEIVED TO STOP ELIQUIS AND PLACE SCD'S IF GUAIAC POSITIVE.
--- NOTE | 2021-08-04 17:19 | NUR ---
SHIFT SUMMARY- PT A/OX4, PT BEDREST T/O THE DAY. PT REPORTS SHE STAYS IN BED AT HOME BUT CAN GET OUT WITH HELP AND FWW. PT DENIES ANY PAIN BUT DOES REPORT CHEST TIGHTNESS FOR THE PAST COUPLE OF DAYS. LS DIMINISHED WITH COARSE CRACKLES, ON 3L VIA NASAL CANNULA WHICH IS HER BASELINE. SOB AT REST, TACHYPNEA. IV LASIX GIVEN THIS AM AND ADDITIONAL DOSE GIVEN THIS AFTERNOON. TELE SR AT 89, 3+ BLE EDEMA. TROPONIN OF 279 THIS AFTERNOON, CARDIOLOGY CONSULT PLACED AND ECHO ORDERED. BISWAS CATHETER PLACED FOR URINARY RETENTION, UA POSITIVE AND ABX STARTED. PT WITH INCONT STOOL, GUAIAC SENT AND RESULTS PENDING. PT DOES REPORT DRINKING 2-3 DRINKS A COUPLE TIMES A WEEK, CIWA STABLE. REDNESS TO SACRAL AND HEELS, MEPILEX PLACED TO SACRAL. NO OTHER ACUTE CHANGES THIS SHIFT.
[2021-08-04 17:47] LABS: Stool Occult Blood Guaiac 1 Pos (Neg)
--- NOTE | 2021-08-04 17:56 | NUR ---
GUIAC POSITIVE, ELIGREG DC'D AND SCD'S PLACED.
--- NOTE | 2021-08-04 18:35 | NUR ---
PT TO IMAGING FOR CT.
[2021-08-05 05:05] LABS: BASOPHILS ABSOLUTE AUTO 0.05 K/mm3 (0.00-0.23); BASOPHILS PERCENT AUTO 1 % (0-2); EOSINOPHILS ABSOLUTE AUTO 0.07 K/mm3 (0.00-0.68); EOSINOPHILS PERCENT AUTO 1 % (0-6); Hematocrit 29.7 % (33.0-51.0); Hemoglobin 9.8 g/dL (11.5-16.0); IMMATURE GRAN ABSOLUTE AUTO 0.07 K/mm3 (0.00-0.10); IMMATURE GRAN PERCENT AUTO 1 % (0-1); LYMPHOCYTES ABSOLUTE AUTO 1.29 K/mm3 (0.84-5.20); LYMPHOCYTES PERCENT AUTO 17 % (21-46); MONOCYTES PERCENT AUTO 9 % (4-13); Mean Corpuscular HGB 33.1 pg (26.0-34.0); Mean Corpuscular Volume 100 fL (80-100); Mean Platelet Volume 9.8 fL (9.1-12.4); NEUTROPHILS ABSOLUTE AUTO 5.36 K/mm3 (1.96-9.15); NEUTROPHILS PERCENT AUTO 71 % (41-73); NRBC ABSOLUTE 0.03 K/mm3 (0.00-0.02); NRBC Auto 0.4 /100 WBC (0.0-0.2); Platelet Count 230 K/mm3 (150-400); RDW Coefficient Variation 17.9 % (11.7-14.2); RDW Standard Deviation 65.3 fL (35.1-46.3); Red Blood Cell Count 2.96 M/mm3 (3.80-5.20); White Blood Cell Count 7.54 K/mm3 (4.00-11.30)
[2021-08-05 05:51] LABS: Albumin, Blood 2.8 g/dL (3.4-5.0); Albumin/Globulin Ratio 0.9 (0.8-1.8); Bilirubin, Total 0.5 mg/dL (0.1-1.0); Bun/Creatinine Ratio 23.8 (12.0-20.0); Calcium, Blood 8.8 mg/dL (8.5-10.1); Creatinine, Blood 0.76 mg/dL (0.40-1.00); Potassium, Blood 3.9 mmol/L (3.5-5.5); Total Protein, Blood 5.8 g/dL (6.4-8.2)
--- NOTE | 2021-08-05 06:06 | NUR ---
SHIFT SUMMARY NOC: PT A&O*4. LUNGS WET COARSE ON 3L NC. INCONTINENT STOOL BRIEF IN PLACE, STOOL DARK BROWN/BLACK. BISWAS IN PLACE. CRITICAL LAB THIS MORNING TROPONIN 162 TRENDING DOWNWARD. PT HAVING PAIN TO BILATERAL HIPS. PRN TYLENOL GIVEN.
--- NOTE | 2021-08-05 07:47 | NUR ---
SPOKE WITH REGARDING DECREASED B/P. DR JUANCHO ELIZABETH AND SUE.
--- NOTE | 2021-08-05 14:47 | NUR ---
SPOKE WITH DR. JOHNSON REGARDING PAIN ISSUES EXCEEDING TYNENOL, STATED BY PT. DR MCCONNELL PUT IN VIA TELEPHOHE DISCUSSION.
--- NOTE | 2021-08-05 16:47 | NUR ---
SHIFT SUMMARY- PT A&OX3. B/P LOW AT BEGINGING OF SHIFT. CONTACTED DR FILIPPO AVALOS B/P, DR JUANCHO ROGERS & LAXIS. C/O PAIN, TREATED PER EMAR. INCENTIVE SPIROMETER USED X3 DURING SHIFT, PT COMPLIANT WITH ALL CARE PROVIDED. TELE NS. PT UP IN CHAIR PARTI SHIFT. PT INCONTENT OF STOOL, 1 SMALL BM MID SHIFT NOTED, DARK IN COLOR. PT APPETITE GOOD. PT RESTING IN BED WITH SIDE RAILS UP AND CALL LIGHT WITHIN REACH.
--- NOTE | 2021-08-05 18:34 | NUR ---
TOUCHED BASE WITH . ABOUT POSTIVE GUAIC FROM 08/04/21. DR DISCUSSED MONITORING HGB, 08/05/21 TEST DOWN (.1). DR WILL CONTINUE TO MONITOR TREND AND ORDER NEEDED. DR DISCUSSED MAY REFER OUTPATIENT. WILL MONITOR AND REPORT TO DR NEEDED.
[2021-08-06 01:52] LABS: BASOPHILS ABSOLUTE AUTO 0.04 K/mm3 (0.00-0.23); BASOPHILS PERCENT AUTO 1 % (0-2); EOSINOPHILS ABSOLUTE AUTO 0.16 K/mm3 (0.00-0.68); EOSINOPHILS PERCENT AUTO 2 % (0-6); Hematocrit 27.9 % (33.0-51.0); Hemoglobin 9.3 g/dL (11.5-16.0); IMMATURE GRAN ABSOLUTE AUTO 0.08 K/mm3 (0.00-0.10); IMMATURE GRAN PERCENT AUTO 1 % (0-1); LYMPHOCYTES ABSOLUTE AUTO 1.17 K/mm3 (0.84-5.20); LYMPHOCYTES PERCENT AUTO 15 % (21-46); MONOCYTES ABSOLUTE AUTO 0.73 K/mm3 (0.16-1.47); MONOCYTES PERCENT AUTO 9 % (4-13); Mean Corpuscular HGB 33.3 pg (26.0-34.0); Mean Corpuscular HGB Conc 33.3 g/dL (31.5-36.5); Mean Corpuscular Volume 100 fL (80-100); NEUTROPHILS ABSOLUTE AUTO 5.87 K/mm3 (1.96-9.15); NEUTROPHILS PERCENT AUTO 73 % (41-73); NRBC ABSOLUTE 0.02 K/mm3 (0.00-0.02); NRBC Auto 0.2 /100 WBC (0.0-0.2); Platelet Count 219 K/mm3 (150-400); RDW Coefficient Variation 17.8 % (11.7-14.2); RDW Standard Deviation 65.4 fL (35.1-46.3); Red Blood Cell Count 2.79 M/mm3 (3.80-5.20); White Blood Cell Count 8.05 K/mm3 (4.00-11.30)
[2021-08-06 02:02] LABS: Bun/Creatinine Ratio 22.2 (12.0-20.0); Calcium, Blood 8.9 mg/dL (8.5-10.1); Creatinine, Blood 0.86 mg/dL (0.40-1.00); Potassium, Blood 4.8 mmol/L (3.5-5.5)
--- NOTE | 2021-08-06 04:41 | NUR ---
pt requesting seroquel for sleep, QTC .56 pharmarcy unsure if medication would increase QTC but stated it was possible. pt given tramadol and tylenol instead. pt slept all night with no other prns given.
--- NOTE | 2021-08-06 16:47 | NUR ---
PT AOX4 AND COOPERATIVE OF CARE. PT IS DOING WELL AND HAS BEEN UP FOR MEALS TODAY. PT WORKED WITH PHYSICAL THERAPY AND OT TODAY. PT RESTING IN BED AT THIS TIME WITH CALL LIGHT IN REACH WILL CONTINUE TO MONITOR.
--- NOTE | 2021-08-07 05:08 | NUR ---
QTC AT START OF SHIFT .55 PER FAMILY SERVICE CASEWORKER. PT GIVEN PRN SEROQUEL FOR SLEEP. PT DID NOT REQUEST ANY PRNS FOR PAIN MANAGEMENT. MORNING QTC .56. NO ACUTE CHANGES IN THE NIGHT. VSS
[2021-08-07 08:38] LABS: BASOPHILS ABSOLUTE AUTO 0.05 K/mm3 (0.00-0.23); BASOPHILS PERCENT AUTO 1 % (0-2); EOSINOPHILS ABSOLUTE AUTO 0.17 K/mm3 (0.00-0.68); EOSINOPHILS PERCENT AUTO 3 % (0-6); Hematocrit 30.2 % (33.0-51.0); Hemoglobin 9.8 g/dL (11.5-16.0); IMMATURE GRAN ABSOLUTE AUTO 0.09 K/mm3 (0.00-0.10); IMMATURE GRAN PERCENT AUTO 2 % (0-1); LYMPHOCYTES ABSOLUTE AUTO 1.21 K/mm3 (0.84-5.20); LYMPHOCYTES PERCENT AUTO 20 % (21-46); MONOCYTES ABSOLUTE AUTO 0.76 K/mm3 (0.16-1.47); MONOCYTES PERCENT AUTO 12 % (4-13); Mean Corpuscular HGB 33.1 pg (26.0-34.0); Mean Corpuscular HGB Conc 32.5 g/dL (31.5-36.5); Mean Corpuscular Volume 102 fL (80-100); Mean Platelet Volume 9.8 fL (9.1-12.4); NEUTROPHILS ABSOLUTE AUTO 3.83 K/mm3 (1.96-9.15); NEUTROPHILS PERCENT AUTO 63 % (41-73); Platelet Count 248 K/mm3 (150-400); RDW Coefficient Variation 17.3 % (11.7-14.2); RDW Standard Deviation 63.8 fL (35.1-46.3); Red Blood Cell Count 2.96 M/mm3 (3.80-5.20); White Blood Cell Count 6.11 K/mm3 (4.00-11.30)
[2021-08-07 08:59] LABS: Creatinine, Blood 0.65 mg/dL (0.40-1.00); Potassium, Blood 4.9 mmol/L (3.5-5.5)
[2021-08-07 15:18] LABS: Influenza A, PCR NEGATIVE (NEGATIVE); Influenza B, PCR NEGATIVE (NEGATIVE); Resp Syncytial Virus, PCR NEGATIVE (NEGATIVE); SARS-Cov-2 (COVID-19) PCR, MMC NEGATIVE (NEGATIVE)
--- NOTE | 2021-08-07 17:03 | NUR ---
SHIFT SUMMARY 76 Y FEMALE ADMITTED WITH CHF. PT IS A&O, PLEASANT AND COOPERATIVE WITH CARE. PT C/O SOB AND SWELLING OF HER TONGUE AND THROAT THIS AM, DR. JOHNSON NOTIFIED AND NEW ORDERS RECIEVED. SYMPTOMS IMPROVED/RESOLVED AFTER IV DOSE OF SOLUMEDROL, BENADRY AND PEPCID. BISWAS D/C THIS AFTERNOON AND BLADDER TRAINING STARTED AND PT TOLERATING WELL. PT UP WITH PT/OT TODAY AND TOLERATED WELL PT WAS PLANNED FOR D/C TO [facility] TODAY BUT POSTPONED UNTIL TOMORROW. NO OTHER CHANGES TO REPORT THIS SHIFT.
--- NOTE | 2021-08-08 04:43 | NUR ---
PT VOIDING APPROPRIATELY POST BISWAS REMOVAL. REPORTS PAIN THAT FEELS LIKE "SCIATICA" IN HER LEFT HIP AND SHOOTING DOWN HER LEG. LUNG SOUNDS A COARSE THROUGHOUT WITH THICK PRODUCTIVE COUGH. PT AMBULATES WITH 4WW WITH MINIMAL ASSIST.
[2021-08-08 08:39] LABS: Influenza A, PCR NEGATIVE (NEGATIVE); Influenza B, PCR NEGATIVE (NEGATIVE); Resp Syncytial Virus, PCR NEGATIVE (NEGATIVE); SARS-Cov-2 (COVID-19) PCR, MMC NEGATIVE (NEGATIVE)
[2021-08-08] MEDS ORDERED: BANATROL PLUS1 EAC1 PO (10:06)
[2021-08-08] MEDS ORDERED: GUAI600T33 PO (10:06)
[2021-08-08] MEDS ORDERED: TRAM50 PO (10:07)
[2021-08-08] MEDS ORDERED: MELA3 PO (10:07)
[2021-08-08] MEDS ORDERED: TRAZ50 PO (10:07)
[2021-08-08] MEDS ORDERED: BENADRYL25 MG PO (10:08)
[2021-08-08] MEDS ORDERED: FAMO20 PO (10:09)
[2021-08-08] MEDS ORDERED: PRED20 PO (10:09)
[2021-08-08] MEDS ORDERED: DOXY100 PO (10:13)
[2021-08-08] MEDS ORDERED: CEPH500 PO (10:13)
--- NOTE | 2021-08-08 12:34 | NUR ---
DISCHARGE SUMMARY PATIENT DISCHARGED TO [facility]. REPORT CALLED TO RECEIVING MAGALIE CONNORS. PATIENT TAKEN VIA WHEELCHAIR TRANSPORT. TRANSPORT PERSONEL GIVEN DISCHARGE PAPERWORK WITH SCRIPT. PATIENT TAKEN VIA WHEELCHAIR ON 02 3L VIA [place]. PATIENT AND ALL BELONGINGS TAKEN. IV AND TELE D/C'D.
== END 2021-08-08 12:16 | DRG 291 ==
LOC: ER 00:23 → MEDS 05:04
PROVIDERS: Emergency Medicine; Internal Medicine; ADMIT Internal Medicine
DX: I11.0 Hypertensive heart disease with heart failure (principal); I50.43 Acute on chronic combined systolic (congestive) and diastolic (congestive) heart failure; J96.21 Acute and chronic respiratory failure with hypoxia; J44.0 Chronic obstructive pulmonary disease with (acute) lower respiratory infection; J44.1 Chronic obstructive pulmonary disease with (acute) exacerbation; N39.0 Urinary tract infection, site not specified; J20.9 Acute bronchitis, unspecified; R94.31 Abnormal electrocardiogram [ECG] [EKG]; D64.9 Anemia, unspecified; I07.1 Rheumatic tricuspid insufficiency; I48.91 Unspecified atrial fibrillation; B96.1 Klebsiella pneumoniae [K. pneumoniae] as the cause of diseases classified elsewhere; B95.2 Enterococcus as the cause of diseases classified elsewhere; R77.8 Other specified abnormalities of plasma proteins; F17.210 Nicotine dependence, cigarettes, uncomplicated; F10.10 Alcohol abuse, uncomplicated; Z20.822 Contact with and (suspected) exposure to COVID-19; Z51.5 Encounter for palliative care; Z87.19 Personal history of other diseases of the digestive system; Z88.0 Allergy status to penicillin; Z87.39 Personal history of other diseases of the musculoskeletal system and connective tissue; Z88.2 Allergy status to sulfonamides; Z79.899 Other long term (current) drug therapy; Z79.51 Long term (current) use of inhaled steroids; Z79.01 Long term (current) use of anticoagulants; Z79.52 Long term (current) use of systemic steroids; Z79.02 Long term (current) use of antithrombotics/antiplatelets; Z90.710 Acquired absence of both cervix and uterus; Z90.49 Acquired absence of other specified parts of digestive tract; Z98.890 Other specified postprocedural states; Z95.818 Presence of other cardiac implants and grafts
CPT/HCPCS: 0241U; 36415; 70450; 71045; 71250; 80048; 80053; 80162; 81001; 82270; 82550; 82553; 83880; 84484; 85025; 87077; 87086; 87186; 93005; 93010; 93306; 94640; 94664; 94760; 97110; 97162; 97165; 97530; 97535; 99285-25; A9270; J0696; J1200; J1940; J2930

== ENCOUNTER 2021-11-06 11:03 | Emergency (ER) | payer MEDICARE, OTHER ==
[~2021-11-06] VITALS: Ht 160 cm; Wt 70.3 kg
[~2021-11-06 11:03] MED LIST changes: +BANATROL PLUS1 EAC1 PO; +BENADRYL25 MG PO; +CEPH500 PO; +DIGOX125 MC1 PO; +DOXY100 PO; +FAMO20 PO; +FLUTICASONE-SA1 EAC9 INH; +GUAI600T33 PO; +KLOR-CON 1010 ME1 PO; +MELA3 PO; +SERT100 PO; +TRAZ50 PO; +ZOLOFT50 MG PO
[2021-11-06 11:44] LABS: BASOPHILS ABSOLUTE AUTO 0.07 K/mm3 (0.00-0.23); BASOPHILS PERCENT AUTO 1 % (0-2); EOSINOPHILS PERCENT AUTO 0 % (0-6); Hemoglobin 11.1 g/dL (11.5-16.0); IMMATURE GRAN ABSOLUTE AUTO 0.07 K/mm3 (0.00-0.10); IMMATURE GRAN PERCENT AUTO 1 % (0-1); LYMPHOCYTES ABSOLUTE AUTO 1.01 K/mm3 (0.84-5.20); LYMPHOCYTES PERCENT AUTO 13 % (21-46); MONOCYTES ABSOLUTE AUTO 0.72 K/mm3 (0.16-1.47); MONOCYTES PERCENT AUTO 9 % (4-13); Mean Corpuscular HGB 30.2 pg (26.0-34.0); Mean Corpuscular HGB Conc 33.6 g/dL (31.5-36.5); Mean Corpuscular Volume 90 fL (80-100); Mean Platelet Volume 9.9 fL (9.1-12.4); NEUTROPHILS ABSOLUTE AUTO 5.97 K/mm3 (1.96-9.15); Platelet Count 242 K/mm3 (150-400); RDW Coefficient Variation 17.2 % (11.7-14.2); RDW Standard Deviation 53.7 fL (35.1-46.3); Red Blood Cell Count 3.67 M/mm3 (3.80-5.20); White Blood Cell Count 7.84 K/mm3 (4.00-11.30)
[2021-11-06 11:48] LABS: NEUTROPHILS PERCENT AUTO 7 % (41-73)
[2021-11-06 11:54] LABS: Albumin, Blood 3.1 g/dL (3.4-5.0); Albumin/Globulin Ratio 0.8 (0.8-1.8); Bilirubin, Total 0.5 mg/dL (0.1-1.0); Bun/Creatinine Ratio 19.7 (12.0-20.0); Calcium, Blood 9.5 mg/dL (8.5-10.1); Creatinine, Blood 0.66 mg/dL (0.40-1.00); Globulin, Blood 4.1 g/dL (2.2-4.0); Potassium, Blood 5.3 mmol/L (3.5-5.5); Total Protein, Blood 7.2 g/dL (6.4-8.2)
[2021-11-06 13:12] LABS: Source, Urine Straight Cath
[2021-11-06 13:23] LABS: Appearance, Urine Cloudy (Clear); Bilirubin, Urine Neg (Neg); Blood, Urine 2+ (Neg); Color, Urine Yellow (P-Yellow); Glucose Qualitative, Urine Neg (Neg); Ketones, Urine Neg (Neg); Leukocyte Esterase, Urine 3+ (Neg); Nitrite, Urine Neg (Neg); Protein, Urine Neg (Neg); Specific Gravity, Urine 1.015 (1.003-1.022); Urobilinogen, Urine NORM (Normal)
[2021-11-06 13:47] LABS: Bacteria Many /hpf; Squamous Epithelial Cells Mod /hpf (Few); White Blood Cells, Urine TNTC /hpf (0-5)
[2021-11-06] MEDS ORDERED: CEPH500 PO (14:45)
== END 2021-11-06 15:40 | disposition home or self-care (01) ==
LOC: ER 11:03
PROVIDERS: Emergency Medicine
DX: N39.0 Urinary tract infection, site not specified (principal); I10 Essential (primary) hypertension; J44.9 Chronic obstructive pulmonary disease, unspecified; F17.210 Nicotine dependence, cigarettes, uncomplicated; Z79.899 Other long term (current) drug therapy; Z79.52 Long term (current) use of systemic steroids; Z79.01 Long term (current) use of anticoagulants
CPT/HCPCS: 36415; 71045; 80053; 81001; 84443; 84484; 85025; 93005; 93010; J0696; J7030

== ENCOUNTER → 2022-02-01 | Outpatient (CLI) | payer MEDICARE, OTHER ==
[2022-02-01 13:37] LABS: Source, Urine Voided
[2022-02-01 15:20] LABS: Appearance, Urine Turbid (Clear); Blood, Urine 4+ (Neg); Color, Urine Amber (P-Yellow); Glucose Qualitative, Urine Neg (Neg); Ketones, Urine 2+ (Neg); Leukocyte Esterase, Urine 3+ (Neg); Nitrite, Urine Pos (Neg); Protein, Urine 3+ (Neg); Specific Gravity, Urine 1.015 (1.003-1.022); Urobilinogen, Urine 2+ (Normal)
[2022-02-01 15:43] LABS: Bilirubin, Urine 2+ (Neg)
[2022-02-01 15:56] LABS: Amorphous Heavy (0-Heavy)
[2022-02-01 15:57] LABS: Bacteria Many /hpf; Hyaline Casts 0-2 /lpf (0-2); Red Blood Cells, Urine TNTC /hpf (0-2); Squamous Epithelial Cells Mod /hpf (Few); Transitional Epithelial Cells Rare /hpf (0-Rare); WBC Cast 0-2 /lpf (0); White Blood Cells, Urine TNTC /hpf (0-5)
[2022-02-01 15:58] LABS: Triple Phosphate Crystals Mod /hpf
== END | disposition home or self-care (01) ==
LOC: LAB SHORT 12:00
PROVIDERS: Physician Assistant
DX: R10.9 Unspecified abdominal pain (principal); R30.0 Dysuria
CPT/HCPCS: 81001; 87086

== ENCOUNTER → 2022-02-05 | Outpatient (CLI) | payer MEDICARE, OTHER ==
[2022-02-05 10:38] LABS: Source, Urine Voided
[2022-02-05 13:04] LABS: Appearance, Urine Hazy (Clear); Bilirubin, Urine Neg (Neg); Blood, Urine 3+ (Neg); Color, Urine Yellow (P-Yellow); Glucose Qualitative, Urine Neg (Neg); Ketones, Urine Neg (Neg); Leukocyte Esterase, Urine 3+ (Neg); Nitrite, Urine Neg (Neg); Protein, Urine 2+ (Neg); Specific Gravity, Urine 1.005 (1.003-1.022); Urobilinogen, Urine NORM (Normal)
[2022-02-05 14:39] LABS: Bacteria Many /hpf; Squamous Epithelial Cells Many /hpf (Few); White Blood Cells, Urine TNTC /hpf (0-5)
[2022-02-05 14:40] LABS: Hyaline Casts 0-2 /lpf (0-2); Transitional Epithelial Cells Few /hpf (0-Rare)
== END | disposition home or self-care (01) ==
LOC: LAB SHORT 10:32
PROVIDERS: Registered Nurse
DX: R10.9 Unspecified abdominal pain (principal); R30.0 Dysuria
CPT/HCPCS: 81001; 87077; 87086; 87186

== ENCOUNTER 2022-02-16 12:18 | Inpatient (IN) | payer MEDICARE, OTHER ==
[~2022-02-16] VITALS: Ht 160 cm; Wt 71.0 kg
[~2022-02-16 12:18] MED LIST changes: -METO100ER PO; +METO50ER PO
[2022-02-16 13:00] LABS: BASOPHILS ABSOLUTE AUTO 0.08 K/mm3 (0.00-0.23); BASOPHILS PERCENT AUTO 1 % (0-2); EOSINOPHILS ABSOLUTE AUTO 0.02 K/mm3 (0.00-0.68); EOSINOPHILS PERCENT AUTO 0 % (0-6); Hematocrit 34.5 % (33.0-51.0); Hemoglobin 11.4 g/dL (11.5-16.0); IMMATURE GRAN ABSOLUTE AUTO 0.04 K/mm3 (0.00-0.10); IMMATURE GRAN PERCENT AUTO 0 % (0-1); LYMPHOCYTES ABSOLUTE AUTO 0.95 K/mm3 (0.84-5.20); LYMPHOCYTES PERCENT AUTO 9 % (21-46); MONOCYTES ABSOLUTE AUTO 0.75 K/mm3 (0.16-1.47); MONOCYTES PERCENT AUTO 7 % (4-13); Mean Corpuscular Volume 97 fL (80-100); Mean Platelet Volume 10.9 fL (9.1-12.4); NEUTROPHILS ABSOLUTE AUTO 8.23 K/mm3 (1.96-9.15); NEUTROPHILS PERCENT AUTO 82 % (41-73); Platelet Count 205 K/mm3 (150-400); RDW Coefficient Variation 20.5 % (11.7-14.2); Red Blood Cell Count 3.56 M/mm3 (3.80-5.20); White Blood Cell Count 10.07 K/mm3 (4.00-11.30)
[2022-02-16 13:19] LABS: Influenza A, PCR NEGATIVE (NEGATIVE); Influenza B, PCR NEGATIVE (NEGATIVE); Resp Syncytial Virus, PCR NEGATIVE (NEGATIVE); SARS-Cov-2 (COVID-19) PCR, MMC NEGATIVE (NEGATIVE)
[2022-02-16 13:33] LABS: Albumin, Blood 2.6 g/dL (3.4-5.0); Albumin/Globulin Ratio 0.6 (0.8-1.8); Bilirubin, Total 0.6 mg/dL (0.1-1.0); Bun/Creatinine Ratio 13.2 (12.0-20.0); Calcium, Blood 9.1 mg/dL (8.5-10.1); Creatinine, Blood 0.61 mg/dL (0.40-1.00); Globulin, Blood 4.3 g/dL (2.2-4.0); Potassium, Blood 5.2 mmol/L (3.5-5.5); Total Protein, Blood 6.9 g/dL (6.4-8.2)
--- NOTE | 2022-02-16 21:52 | NUR ---
PT ARRIVES FROM ER. REPORT TAKEN FROM EBONY MEJIAS. PT ARRIVES ON CONTINUOUS CARDIAC MONITORING AND 4L O2 VIA NC. A&O X4.
--- NOTE | 2022-02-16 22:26 | NUR ---
SHANITA VILLAGRAN RE: LAST REPORTED TROPONIN OF 194. CLARIFIED ORDERS FOR PLAVIX, ASPIRIN, AND HEPARIN TO ALL BE STARTED TONIGHT.
[2022-02-16 22:47] LABS: International Normalized Ratio 0.98; Prothrombin Time Results 10.3 Sec (9.7-11.5)
[2022-02-16 23:23] LABS: Anti-Xa UFH, PHA Monitoring <0.10 IU/mL
--- NOTE | 2022-02-17 05:45 | NUR ---
SHANITA DAUGHTER SHANTA AND GAVE UPDATE ON PT. DAUGHTER IS PT'S PRIMARY CAREGIVER AT HOME AND IS INTERESTED IN PURSUING THERAPIES TO INCREASE PT'S MOBILITY AND ABILITIES TO PERFORM ADL'S MORE INDEPENDENTLY IF POSSIBLE. WILL REPORT TO DAYSHIFT RN FOR CASE MANAGEMENT CONSULT.
[2022-02-17 06:13] LABS: BASOPHILS ABSOLUTE AUTO 0.05 K/mm3 (0.00-0.23); BASOPHILS PERCENT AUTO 1 % (0-2); EOSINOPHILS ABSOLUTE AUTO 0.05 K/mm3 (0.00-0.68); EOSINOPHILS PERCENT AUTO 1 % (0-6); Hematocrit 30.2 % (33.0-51.0); Hemoglobin 10.1 g/dL (11.5-16.0); IMMATURE GRAN ABSOLUTE AUTO 0.03 K/mm3 (0.00-0.10); IMMATURE GRAN PERCENT AUTO 1 % (0-1); LYMPHOCYTES PERCENT AUTO 22 % (21-46); MONOCYTES ABSOLUTE AUTO 0.71 K/mm3 (0.16-1.47); MONOCYTES PERCENT AUTO 14 % (4-13); Mean Corpuscular HGB 32.2 pg (26.0-34.0); Mean Corpuscular HGB Conc 33.4 g/dL (31.5-36.5); Mean Corpuscular Volume 96 fL (80-100); Mean Platelet Volume 9.4 fL (9.1-12.4); NEUTROPHILS ABSOLUTE AUTO 3.18 K/mm3 (1.96-9.15); NEUTROPHILS PERCENT AUTO 62 % (41-73); Platelet Count 135 K/mm3 (150-400); RDW Coefficient Variation 20.4 % (11.7-14.2); RDW Standard Deviation 71.4 fL (35.1-46.3); Red Blood Cell Count 3.14 M/mm3 (3.80-5.20); White Blood Cell Count 5.12 K/mm3 (4.00-11.30)
--- NOTE | 2022-02-17 06:24 | NUR ---
SUMMARY NO ACUTE EVENTS OVERNIGHT. PT HAD A BRIEF EPISODE OF BRADYCARDIA IN THE LOW 50'S W/PVC'S. SR IN THE 60'S REMAINDER OF SHIFT. BP STABLE. 3L 02 VIA NC, RR <20, SPO2 >92%. PT TREATED W/PRN TRAMADOL FOR BACKPAIN. RESTED COMFORTABLY THROUGHOUT SHIFT. HEPARIN INFUSING @15U/KG/HR THROUGH 20GA RAC. PUREWICK IN PLACE W/200MLS OUTPUT THIS SHIFT. ASSESSMENTS REMAIN UNCHANGED.
[2022-02-17 06:32] LABS: Bun/Creatinine Ratio 13.3 (12.0-20.0); Calcium, Blood 8.7 mg/dL (8.5-10.1); Creatinine, Blood 0.68 mg/dL (0.40-1.00); Potassium, Blood 3.8 mmol/L (3.5-5.5)
--- NOTE | 2022-02-17 09:53 | NUR ---
CARDIOLOGY AT BEDSIDE
--- NOTE | 2022-02-17 10:24 | NUR ---
OT AT BEDSIDE TO WORK WITH PT. HEPARIN GTT STOPPED PER DR. PANDA.
--- NOTE | 2022-02-17 17:02 | NUR ---
SHIFT SUMMARY PT. REMAINS ALERT AND ORIENTED T/O DAY. HEPARIN GTT DCD TODAY AND DISCUSSION OF COUMADIN VS ELIQUIS DISCUSSED WITH PHARMACIST, PT STILL DECIDING. PT. VSS T/O SHIFT. UP TO BED SIDE CHAIR WITH 1 PERSON AND WALKER. PT DOES BECOME SOB WITH EXCERTION. DENIES ANY CHEST PAIN OR PRESSURE TODAY. SALINE LOCKED AT THIS TIME. PURWICK IN PLACE. REPORT TO LUIS MEJIAS
--- NOTE | 2022-02-17 21:15 | NUR ---
ASSUMPTION OF CARE THIS RN ASSUMED CARE OF PATIENT AT 1900. REPORT TAKEN FROM EMILY MEJIAS. SINUS SHER NOTED ON MONITOR AT TIME OF SHIFT CHANGE WITH HR OF 58. PATIENT APPEARS TO HAVE A LOWER HR OF 50-60S AT REST. MD AWARE. BP STABLE. AFEBRILE. PUREWICK IN PLACE DUE TO LASIX AND INCONTINENCE. ATTENDS IN PLACE. PATIENT ALERT AND ORIENTED FULLY. ABLE TO MAKE NEEDS KNOWN AND REPOSITION SELF IN BED. BED IN LOWEST POSITION AND CALL LIGHT WITHIN REACH. THIS RN WILL REVIEW CHART AND CONTINUE TO MONITOR AND PROVIDE INTERVENTIONS NEEDED/ORDERED.
[2022-02-18 04:07] LABS: BASOPHILS ABSOLUTE AUTO 0.07 K/mm3 (0.00-0.23); BASOPHILS PERCENT AUTO 1 % (0-2); EOSINOPHILS ABSOLUTE AUTO 0.03 K/mm3 (0.00-0.68); EOSINOPHILS PERCENT AUTO 1 % (0-6); Hematocrit 29.8 % (33.0-51.0); Hemoglobin 9.9 g/dL (11.5-16.0); IMMATURE GRAN ABSOLUTE AUTO 0.03 K/mm3 (0.00-0.10); IMMATURE GRAN PERCENT AUTO 1 % (0-1); LYMPHOCYTES ABSOLUTE AUTO 0.66 K/mm3 (0.84-5.20); LYMPHOCYTES PERCENT AUTO 13 % (21-46); MONOCYTES ABSOLUTE AUTO 0.61 K/mm3 (0.16-1.47); MONOCYTES PERCENT AUTO 12 % (4-13); Mean Corpuscular HGB 32.2 pg (26.0-34.0); Mean Corpuscular HGB Conc 33.2 g/dL (31.5-36.5); Mean Corpuscular Volume 97 fL (80-100); Mean Platelet Volume 9.9 fL (9.1-12.4); NEUTROPHILS ABSOLUTE AUTO 3.59 K/mm3 (1.96-9.15); NEUTROPHILS PERCENT AUTO 72 % (41-73); Platelet Count 142 K/mm3 (150-400); RDW Coefficient Variation 19.7 % (11.7-14.2); RDW Standard Deviation 69.3 fL (35.1-46.3); Red Blood Cell Count 3.07 M/mm3 (3.80-5.20); White Blood Cell Count 4.99 K/mm3 (4.00-11.30)
[2022-02-18 04:42] LABS: Albumin, Blood 2.5 g/dL (3.4-5.0); Albumin/Globulin Ratio 0.7 (0.8-1.8); Bilirubin, Total 0.6 mg/dL (0.1-1.0); Bun/Creatinine Ratio 15.5 (12.0-20.0); Calcium, Blood 8.5 mg/dL (8.5-10.1); Creatinine, Blood 0.71 mg/dL (0.40-1.00); Globulin, Blood 3.5 g/dL (2.2-4.0); Potassium, Blood 3.8 mmol/L (3.5-5.5)
--- NOTE | 2022-02-18 04:49 | NUR ---
SHIFT SUMMARY PATIENT ALERT AND ORIENTED FULLY DURING THIS SHIFT. ABLE TO MAKE NEEDS KNOWN AND CALLS APPROPRIATELY. PATIENT WITH SR/SB ON MONITOR WITH HR 50-60S. BP STABLE. AFEBRILE. ON 3L VIA NC WITH SPO2 >92%. PATIENT WAS MEDICATED PER EMAR FOR INSOMNIA BUT WOKE UP AROUND 0300 AND STATED SHE COULD NOT SLEEP ANYMORE AND SHE DID NOT KNOW WHY. THIS RN PROVIDED NONPHARMACOLOGIC INTERVENTIONS TO HELP PATIENT GET BACK TO SLEEP WITH NO RESULTS. PATIENT STATED COMFORT DESPITE INSOMNIA. PATIENT IS INCONTINENT OF B/B; PUREWICK IN PLACE. PATIENT IS ABLE TO REPOSITION SELF INDEPENDENTLY IN BED. SEE ASSESSMENT. PATIENT APPEARS TO BE WATCHING TV IN BED AT THIS TIME. BED IN LOWEST POSITION AND CALL LIGHT WITHIN REACH. THIS RN WILL CONTINUE TO MONITOR UNTIL SHIFT CHANGE AT 0700.
[2022-02-18] MEDS ORDERED: ATOR40TA PO (11:05)
[2022-02-18] MEDS ORDERED: LOSA25 PO (11:06)
[2022-02-18] MEDS ORDERED: NICO21TP TOP (11:06)
[2022-02-18 12:11] LABS: SARS-Cov-2 (COVID-19) PCR, MMC NEGATIVE (NEGATIVE)
--- NOTE | 2022-02-18 14:25 | NUR ---
DISCHARGE TO FACILITY PT A&O X4. BP SOFT, OTHERWISE VSS. SPO2 > 92% ON 3L NC WHICH PT REPORTS BEING HOME O2 USE. DISCHARGE INSTRUCTIONS REVIEWED W/ PT & SENT W/ PT. PT TAKEN OUT BY PCT IN WHEELCHAIR @ APPROX 1400 W/ BELONGINGS. PT DAUGHTER TO TAKE PT TO FACILITY.
== END 2022-02-18 14:28 | DRG 291 ==
LOC: ER 12:18 → PCU 12:19 → ERHOLD 12:19 → PCU 21:55
PROVIDERS: Family Medicine; Physician Assistant; ADMIT Student in an Organized Health Care Education/Training Program
DX: I11.0 Hypertensive heart disease with heart failure (principal); I50.43 Acute on chronic combined systolic (congestive) and diastolic (congestive) heart failure; I24.8 Other forms of acute ischemic heart disease; I48.0 Paroxysmal atrial fibrillation; J44.9 Chronic obstructive pulmonary disease, unspecified; D63.8 Anemia in other chronic diseases classified elsewhere; D69.6 Thrombocytopenia, unspecified; M32.9 Systemic lupus erythematosus, unspecified; F17.210 Nicotine dependence, cigarettes, uncomplicated; I07.1 Rheumatic tricuspid insufficiency; K43.9 Ventral hernia without obstruction or gangrene; R00.1 Bradycardia, unspecified; I25.10 Atherosclerotic heart disease of native coronary artery without angina pectoris; Z20.822 Contact with and (suspected) exposure to COVID-19; Z23 Encounter for immunization; Z88.0 Allergy status to penicillin; Z88.2 Allergy status to sulfonamides; Z79.899 Other long term (current) drug therapy; Z79.51 Long term (current) use of inhaled steroids; Z79.52 Long term (current) use of systemic steroids; Z79.891 Long term (current) use of opiate analgesic; Z79.2 Long term (current) use of antibiotics; Z87.19 Personal history of other diseases of the digestive system; Z79.01 Long term (current) use of anticoagulants; Z98.890 Other specified postprocedural states; Z90.710 Acquired absence of both cervix and uterus; Z90.49 Acquired absence of other specified parts of digestive tract
CPT/HCPCS: 0241U; 36415; 71046; 71260; 80048; 80053; 83735; 83880; 84484; 85025; 85520; 85610; 85730; 90686; 93005; 93010; 93306; 94640; 94664; 94762; 96372; 96374-59; 96376; 97116; 97162; 97530; 99285-25; A9270; G0008; G0378; J1644; J1940; Q9967; U0004

== ENCOUNTER 2022-09-28 13:27 | Emergency (ER) | payer MEDICARE, OTHER ==
[~2022-09-28] VITALS: Ht 160 cm; Wt 72.6 kg
[~2022-09-28 13:27] MED LIST changes: +AMIODARONE HCL400 M2 PO; +LOSA25 PO; +MAGNESIUM OXID400 M1 PO
[2022-09-28] MEDS ORDERED: POTA8 (13:57)
[2022-09-28 14:11] LABS: BASOPHILS ABSOLUTE AUTO 0.05 K/mm3 (0.00-0.23); BASOPHILS PERCENT AUTO 1 % (0-2); EOSINOPHILS PERCENT AUTO 1 % (0-6); Hematocrit 35.5 % (33.0-51.0); Hemoglobin 12.1 g/dL (11.5-16.0); IMMATURE GRAN ABSOLUTE AUTO 0.07 K/mm3 (0.00-0.10); IMMATURE GRAN PERCENT AUTO 1 % (0-1); LYMPHOCYTES ABSOLUTE AUTO 1.42 K/mm3 (0.84-5.20); LYMPHOCYTES PERCENT AUTO 17 % (21-46); MONOCYTES ABSOLUTE AUTO 0.83 K/mm3 (0.16-1.47); MONOCYTES PERCENT AUTO 10 % (4-13); Mean Corpuscular HGB 28.9 pg (26.0-34.0); Mean Corpuscular HGB Conc 34.1 g/dL (31.5-36.5); Mean Corpuscular Volume 85 fL (80-100); Mean Platelet Volume 10.2 fL (9.1-12.4); NEUTROPHILS ABSOLUTE AUTO 5.78 K/mm3 (1.96-9.15); NEUTROPHILS PERCENT AUTO 70 % (41-73); Platelet Count 241 K/mm3 (150-400); RDW Coefficient Variation 14.7 % (11.7-14.2); RDW Standard Deviation 45.4 fL (35.1-46.3); Red Blood Cell Count 4.18 M/mm3 (3.80-5.20); White Blood Cell Count 8.25 K/mm3 (4.00-11.30)
[2022-09-28 14:26] LABS: Albumin, Blood 3.8 g/dL (3.4-5.0); Albumin/Globulin Ratio 1.1 (0.8-1.8); Bilirubin, Total 0.5 mg/dL (0.1-1.0); Calcium, Blood 8.7 mg/dL (8.5-10.1); Globulin, Blood 3.5 g/dL (2.2-4.0); Potassium, Blood 3.8 mmol/L (3.5-5.5); Total Protein, Blood 7.3 g/dL (6.4-8.2)
[2022-09-28 14:54] LABS: International Normalized Ratio 1.05
[2022-09-28 17:35] LABS: Calcium, Ionized (POC) 1.01 mmol/L (1.10-1.46); Chloride (POC) 90 mmol/L (98-108); Creatinine (POC) 1.2 mg/dL (0.6-1.0); Glucose (ISTAT POC) 88 mg/dL (70-99); Hemoglobin (POC) 12.9 g/dL (12.0-16.0); Potassium (POC) 5.4 mmol/L (3.5-5.5); Sodium (POC) 130 mmol/L (135-148); Total CO2 (POC) 30 mmol/L (21-32)
[2022-09-28 18:30] VITALS: BP 170/70
== END 2022-09-28 19:07 | disposition other institution (70) ==
LOC: ER 13:27
PROVIDERS: Student in an Organized Health Care Education/Training Program
DX: S06.9X9A Unspecified intracranial injury with loss of consciousness of unspecified duration, initial encounter (principal); R55 Syncope and collapse; I95.1 Orthostatic hypotension; R00.1 Bradycardia, unspecified; Z79.01 Long term (current) use of anticoagulants; W18.30XA Fall on same level, unspecified, initial encounter; Z88.0 Allergy status to penicillin; Z88.2 Allergy status to sulfonamides; Z79.899 Other long term (current) drug therapy; F17.210 Nicotine dependence, cigarettes, uncomplicated; I11.0 Hypertensive heart disease with heart failure; J44.9 Chronic obstructive pulmonary disease, unspecified; I50.9 Heart failure, unspecified
CPT/HCPCS: 70450; 80047; 80053; 85014; 85025; 85610; 93005; 93010; 96361; 96374; 99284-25; A9270; J1885; J7030